=== PATIENT | female | born 1980 | race Caucasian/White ===

== ENCOUNTER 2022-06-28 09:20 | Oncology outpatient (recurring) (ONCR) | payer BC, SELFPAY ==
[2022-06-28 11:18] LABS: Basophils # 0.1 10^3/uL (0.0-0.1); Basophils % 0.9 %; Eosinophils # 0.3 10^3/uL (0.0-0.8); Hematocrit 46.6 % (37.0-47.0); Hemoglobin 15.1 g/dL (11.5-15.3); Lymphocytes # 2.8 10^3/uL (0.8-4.8); Lymphocytes % 26.6 %; Mean Corpuscular HGB Conc 32.4 g/dL (30.0-36.0); Mean Corpuscular Hemoglobin 29.6 pg (28.0-34.0); Mean Corpuscular Volume 91.4 fl (81-99); Mean Platelet Volume 11.2 fL (7.4-10.4); Monocytes # 0.7 10^3/uL (0.2-0.9); Monocytes % 6.7 %; Neutrophils # 6.58 10^3/uL (1.8-7.7); Neutrophils % 62.4 %; Nucleated Red Blood Cells % 0 %; Platelet Count 209 10^3/cmm (130-400); White Blood Count 10.6 10^3/uL (4.0-10.0)
[2022-06-28 11:29] LABS: Erythrocyte Sedimentation Rate 7 mm/hr (0-15)
[2022-06-28 12:00] LABS: Alanine Aminotransferase 17 U/L (0-33); Albumin Level 3.7 g/dL (3.5-5.2); Alkaline Phosphatase 109 U/L (35-105); Anion Gap 13.8 (5-19); Aspartate Amino Transferase 13 U/L (0-32); Blood Urea Nitrogen 10 mg/dL (6-20); C Reactive Protein 9.4 mg/L (0.0-4.9); Calcium 8.8 mg/dL (8.5-10.5); Carbon Dioxide 25 mmol/L (22-29); Chloride 104 mmol/L (98-107); Globulin 2.4 g/dL (1.3-4.6); Glomerular Filtration Rate 91.8 mL/min (90-130); Glucose 217 mg/dL (65-115); Iron 54 ug/dL (37-145); Lactate Dehydrogenase 298 U/L (135-214); Osmolality Calculated 294 mOsm/kg (285-295); Percent Saturation 23.5 % (20-50); Potassium 3.8 mmol/L (3.5-5.1); Sodium 139 mmol/L (136-145); Total Bilirubin 0.3 mg/dL (0.15-1.2); Total Iron Binding Capacity 229 mcg/dl; Total Protein 6.1 g/dL (6.6-8.7); Unsaturated Iron Binding 175 ug/dL (112-347); Vitamin B12 479 pg/mL (232-1245)
[2022-06-28 12:14] LABS: LAB Peripheral Smear Sent for Review
== END 2022-06-29 23:59 | disposition home or self-care (01) ==
LOC: ONCMED 09:21
PROVIDERS: PCP Family Medicine; Visit Provider Internal Medicine Medical Oncology
DX: D72.829 Elevated white blood cell count, unspecified (principal); R53.83 Other fatigue
CPT/HCPCS: 36415; 80053; 82607; 83540; 83550; 83615; 84443; 85025; 85651; 86140

== ENCOUNTER 2022-10-25 09:28 | Oncology outpatient (recurring) (ONCR) | payer BC, MEDICAID, SELFPAY ==
[2022-10-25 09:56] VITALS: BP 122/83; PULSE 76; RESP 18; TEMP 36.9; O2SAT 96
[2022-10-25 10:06] LABS: Basophils # 0.1 10^3/uL (0.0-0.1); Basophils % 1.2 %; Eosinophils # 0.3 10^3/uL (0.0-0.8); Eosinophils % 3.7 %; Hematocrit 44.7 % (37.0-47.0); Hemoglobin 14.9 g/dL (11.5-15.3); Lymphocytes # 2.3 10^3/uL (0.8-4.8); Lymphocytes % 27.4 %; Mean Corpuscular HGB Conc 33.3 g/dL (30.0-36.0); Mean Corpuscular Hemoglobin 30.2 pg (28.0-34.0); Mean Corpuscular Volume 90.7 fl (81-99); Mean Platelet Volume 10.3 fL (7.4-10.4); Monocytes # 0.5 10^3/uL (0.2-0.9); Monocytes % 6.1 %; Neutrophils % 61.2 %; Nucleated Red Blood Cells % 0 %; Platelet Count 152 10^3/cmm (130-400); Red Blood Count 4.93 10^6/uL (4.1-5.3); Red Cell Distribution Width 12.8 % (12.1-15.1); White Blood Count 8.3 10^3/uL (4.0-10.0)
[2022-10-25 10:34] LABS: Alanine Aminotransferase 13 U/L (0-33); Albumin Level 3.8 g/dL (3.5-5.2); Alkaline Phosphatase 82 U/L (35-105); Anion Gap 14.2 (5-19); Aspartate Amino Transferase 16 U/L (0-32); Blood Urea Nitrogen 9 mg/dL (6-20); C Reactive Protein 13.6 mg/L (0.0-4.9); Calcium 8.5 mg/dL (8.5-10.5); Carbon Dioxide 23 mmol/L (22-29); Chloride 107 mmol/L (98-107); Globulin 2.5 g/dL (1.3-4.6); Glomerular Filtration Rate 135.3 mL/min (90-130); Glucose 109 mg/dL (65-115); Osmolality Calculated 289 mOsm/kg (285-295); Potassium 4.2 mmol/L (3.5-5.1); Sodium 140 mmol/L (136-145); Total Bilirubin 0.3 mg/dL (0.15-1.2); Total Protein 6.3 g/dL (6.6-8.7)
[2022-10-25 10:54] LABS: Erythrocyte Sedimentation Rate 8 mm/hr (0-15)
== END 2022-10-29 23:59 | disposition home or self-care (01) ==
PROVIDERS: PCP Family Medicine; Visit Provider Internal Medicine Medical Oncology
DX: D72.829 Elevated white blood cell count, unspecified (principal)
CPT/HCPCS: 36415; 80053; 85025; 85651; 86140

== ENCOUNTER 2025-01-29 08:41 | Emergency (ER) | payer BC, MEDICAID, SELFPAY ==
--- NOTE | 2025-01-29 08:55 | XR_ITS ---
WS: [id number] XR hand RT min 3V* [id number] REASON FOR EXAM: pain FINDINGS: No fracture or focal bone lesion. No periosteal reaction or bone erosion. Minimal narrowing of the joint space with minimal subchondral sclerosis and osteophytosis in the DIP joints of this second through the fifth fingers and the thumb. Mild arthropathy in the base of the thumb characterized by mild carpometacarpal joint space narrowing with mild subchondral sclerosis and osteophytosis. XR/XR hand RT min 3V* [id number] IMPRESSION: Mild osteoarthritis as above.
[2025-01-29 08:56] VITALS: BP 141/88; PULSE 98; RESP 18; TEMP 36.7; O2SAT 98; BMI 36.2
--- OUTSIDE RECORDS SUMMARY | 2025-01-29 09:01 | XMS_ITS | Encounter Summary ---
Author Organization [facility] Address [address] [place] [address] Care Team Providers Care Trade Mark Examiner Name Role Phone SOMMER Fuentes Sr., Michael Dave Primary Care Pro vider Encounter Details Date Type Department Care Team (Latest Contact Info) Description 12/21/2004 Outpatient Historical [address] [place] [address] John Jaime Jr., MD NO ADDRESS ON FILE SUPERVIS OTHER NORMAL PREG (Primary Dx) Social History Tobacco Use Types Packs/Day Years Used Date Smoking Tobacco: Never Assessed Comments Unknown Sex and Gender Information Value Date Recorded Sex Assigned at Not on file Legal Sex Female 4:48 AM 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
--- OUTSIDE RECORDS SUMMARY | 2025-01-29 09:01 | XMS_ITS | Encounter Summary ---
Author Organization [facility] Address [address] [place] [address] Care Team Providers Care Route Sales Person Name Role Phone SOMMER Fuentes Sr., Michael Dave Primary Care Pro vider Encounter Details Date Type Department Care Team (Latest Contact Info) Description 11/16/[address] [facility] [address] [place] [address] Gail Pastrana FNP [address] [place] [phone] ABN BLOOD CHEMISTRY NEC (Primary Dx) Social History Tobacco Use Types Packs/Day Years Used Date Smoking Tobacco: Never Assessed Comments Unknown Sex and Gender Information Value Date Recorded Sex Assigned at Not on file Legal Sex Female 4:48 AM COFFEE SHOP AIDE Gender Identity Not on file Sexual Orientation Not on file documented as of this encounter Plan of Treatment Not on file documented as of this encounter Visit Diagnoses Diagnosis Other abnormal blood chemistry- Primary documented in this encounter Care Teams Route Sales Person Relationship Specialty Start Date End Date Vijay Fuentes Sr., FNP [address] [place] [address] PCP - General NURSE PRACTITIONER 04/24/18 documented as of this encounter
--- OUTSIDE RECORDS SUMMARY | 2025-01-29 09:01 | XMS_ITS | Encounter Summary ---
Author Organization [facility] Address [address] [place] [address] Care Team Providers Care Invoice Clerk Name Role Phone SOMMER Fuentes Sr., Vijay Fregoso Primary Care Pro vider Encounter Details Date Type Department Care Team (Latest Contact Info) Description 05/27/[address] [facility] [address] [place] [address] Gail Pastrana FNP [address] [place] [phone] CARPAL TUNNEL SYNDROME (Primary Dx) Social History Tobacco Use Types Packs/Day Years Used Date Smoking Tobacco: Never Assessed Comments Unknown Sex and Gender Information Value Date Recorded Sex Assigned at Not on file Legal Sex Female 4:48 AM COMMUNICATIONS AGENT Gender Identity Not on file Sexual Orientation Not on file documented as of this encounter Plan of Treatment Not on file documented as of this encounter Visit Diagnoses Diagnosis Carpal tunnel syndrome- Primary documented in this encounter Care Teams Invoice Clerk Relationship Specialty Start Date End Date Vijay Fuentes Sr., FNP [address] [place] [address] PCP - General NURSE PRACTITIONER 04/24/18 documented as of this encounter
--- OUTSIDE RECORDS SUMMARY | 2025-01-29 09:01 | XMS_ITS | Encounter Summary ---
Author Organization [facility] Address [address] [place] [address] Care Team Providers Care Cobol Application Developer Name Role Phone SOMMER Fuentes Sr., Michael Dave Primary Care Pro vider Encounter Details Date Type Department Care Team (Latest Contact Info) Description 04/03/2003 Outpatient Historical [address] [place] [address] John Jaime Jr., MD NO ADDRESS ON FILE SUPERVIS NORMAL 1ST PREG (Primary Dx) Social History Tobacco Use Types Packs/Day Years Used Date Smoking Tobacco: Never Assessed Comments Unknown Sex and Gender Information Value Date Recorded Sex Assigned at Not on file Legal Sex Female 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
--- OUTSIDE RECORDS SUMMARY | 2025-01-29 09:01 | XMS_ITS | Encounter Summary ---
Author Organization [facility] Address [address] [place] [address] Care Team Providers Care Insurance Sales Representative Name Role Phone Alfredo Galvan, SOMMER, Vijay Fregoso Primary Care Pro vider Encounter Details Date Type Department Care Team (Latest Contact Info) Description 02/17/2005 Outpatient Historical [facility] Addison Hassan, John Alonso MD NO ADDRESS ON FILE CERV INCOMPET-ANTEPARTUM (Primary Dx) Social History Tobacco Use Types Packs/Day Years Used Date Smoking Tobacco: Never Assessed Comments Unknown Sex and Gender Information Value Date Recorded Sex Assigned at Not on file 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 Gender Identity Not on file Sexual Orientation Not on file documented as of this encounter Plan of Treatment Not on file documented as of this encounter Procedures Procedure Name Priority Date/Time Associated Diagnosis Comments CBC WITHOUT DIFFERENTIAL Routine 02/17/2005 6:48 AM CDT documented in this encounter Results * (ABNORMAL) CBC WITHOUT DIFFERENTIAL (02/17/2005 6:48 AM CDT) WBC 12.2(H) 4.5 - 11.0 K/ul INTERFACE SYSTEM RBC 4.66 4.20 - 5.40 Mil/ul INTERFACE SYSTEM HEMOGLOBIN 14.4 12.0 - 16.0 g/dL INTERFACE SYSTEM HEMATOCRIT 42.1 36.0 - 46.0 % INTERFACE SYSTEM MCV 90.3 84.0 - 103.0 Fl INTERFACE SYSTEM MCH 30.9 27.0 - 34.0 pg INTERFACE SYSTEM MCHC 34.2 30.0 - 35.0 g/dL INTERFACE SYSTEM RDW 12.3 11.0 - 14.5 % INTERFACE SYSTEM PLATELETS 216 140 - 440 K/ul INTERFACE SYSTEM MPV 10.6 8.9 - 12.8 Fl INTERFACE SYSTEM NEUTROPHILS 67.3 42.2 - 75.2 % INTERFACE SYSTEM LYMPHOCYTES 24.0 24.0 - 44.0 % INTERFACE SYSTEM MONOCYTES 6.0 2.0 - 10.0 % INTERFACE SYSTEM EOSINOPHILS 2.5 0.0 - 7.0 % INTERFACE SYSTEM BASOPHILS 0.2 0.0 - 1.0 % INTERFACE SYSTEM NEUTROPHIL ABSOLUTE 8.2(H) 2.0 - 8.0 K/uL INTERFACE SYSTEM LYMPHOCYTE ABSOLUTE 2.9 1.2 - 4.0 K/ul INTERFACE SYSTEM MONOCYTE ABSOLUTE 0.7(H) 0.1 - 0.6 K/ul INTERFACE SYSTEM EOSINOPHIL ABSOLUTE 0.3 0.0 - 0.7 K/ul INTERFACE SYSTEM BASOPHILS ABSOLUTE 0.0 0.0 - 0.2 K/ul INTERFACE SYSTEM 02/17/2005 6:48 AM CDT us John Jaime Jr., MD HEMATOLOGY ORDERABLES Fi nal Result INTERFACE SYSTEM Refer to clinic/hospital department documented in this encounter Visit Diagnoses Diagnosis Cervical incompetence, antepartum condition or complication- Primary documented in this encounter Care Teams Insurance Sales Representative Relationship Specialty Start Date End Date Alfredo Galvan, SOMMER [address] [place] [address] PCP - General NURSE PRACTITIONER 04/24/18 documented as of this encounter
--- OUTSIDE RECORDS SUMMARY | 2025-01-29 09:01 | XMS_ITS | Encounter Summary ---
Author Organization [facility] Address [address] [place] [address] Care Team Providers Care Audit Associate Name Role Phone SOMMER Fuentes Sr., Michael Dave Primary Care Pro vider Encounter Details Date Type Department Care Team (Latest Contact Info) Description 02/02/2005 Outpatient Historical [address] [place] [address] John Jaime Jr., MD NO ADDRESS ON FILE SUPERVIS OTHER NORMAL PREG (Primary Dx) Social History Tobacco Use Types Packs/Day Years Used Date Smoking Tobacco: Never Assessed Comments Unknown Sex and Gender Information Value Date Recorded Sex Assigned at Not on file Legal Sex Female 4:48 AM CHAPERON Gender Identity Not on file Sexual Orientation Not on file documented as of this encounter Plan of Treatment Not on file documented as of this encounter Visit Diagnoses Diagnosis Supervision of other normal - Primary documented in this encounter Care Teams Audit Associate Relationship Specialty Start Date End Date Vijay Fuentes Sr., FNP [address] [place] [address] PCP - General NURSE PRACTITIONER 04/24/18 documented as of this encounter
--- OUTSIDE RECORDS SUMMARY | 2025-01-29 09:01 | XMS_ITS | Encounter Summary ---
Author Organization [facility] Address [address] [place] [address] Care Team Providers Care General Counsel Name Role Phone SOMMER Fuentes Sr., Vijay Fregoso Primary Care Pro vider Encounter Details Date Type Department Care Team (Late st Contact Info) Description 12/21/2004 Outpatient Historical [facility] Addison Hassan, John Alonso MD NO ADDRESS ON FILE Social History Tobacco Use Types Packs/Day Years Used Date Smoking Tobacco: Never Assessed Comments Unknown Sex and Gender Information Value Date Recorded Sex Assigned at Not on file Legal Sex Female 4:48 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
--- OUTSIDE RECORDS SUMMARY | 2025-01-29 09:01 | XMS_ITS | Encounter Summary ---
Author Organization [facility] Address [address] [place] [address] Care Team Providers Care Consumer Loan Underwriter Name Role Phone SOMMER Fuentes Sr., Vijay Fregoso Primary Care Pro vider Encounter Details Date Type Department Care Team (Latest Contact Info) Description 10/12/2004 Outpatient Historical [facility] [address] [place] [phone] Gail Pastrana FNP [address] [place] [address] OTHER MALAISE AND FATIGUE (Primary Dx); DIZZINESS AND GIDDINESS Social History Tobacco Use Types Packs/Day Years Used Date Smoking Tobacco: Never Assessed Comments Unknown Sex and Gender Information Value Date Recorded Sex Assigned at Not on file 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
--- OUTSIDE RECORDS SUMMARY | 2025-01-29 09:01 | XMS_ITS | Encounter Summary ---
Author Organization [facility] Address [address] [place] [address] Care Team Providers Care Diamond Mounter Name Role Phone SOMMER Fuentes Sr., Michael Dave Primary Care Pro vider Encounter Details Date Type Department Care Team (Latest Contact Info) Description 12/21/2004 Outpatient Historical [address] [place] [address] John Jaime Jr., MD NO ADDRESS ON FILE SUPERVIS OTHER NORMAL PREG (Primary Dx) Social History Tobacco Use Types Packs/Day Years Used Date Smoking Tobacco: Never Assessed Comments Unknown Sex and Gender Information Value Date Recorded Sex Assigned at Not on file Legal Sex Female 4:48 AM API PRODUCT MANAGER Gender Identity Not on file Sexual Orientation Not on file documented as of this encounter Plan of Treatment Not on file documented as of this encounter Visit Diagnoses Diagnosis Supervision of other normal - Primary documented in this encounter Care Teams Diamond Mounter Relationship Specialty Start Date End Date Vijay Fuentes Sr., FNP [address] [place] [address] PCP - General NURSE PRACTITIONER 04/24/18 documented as of this encounter
--- OUTSIDE RECORDS SUMMARY | 2025-01-29 09:01 | XMS_ITS | Encounter Summary ---
Author Organization [facility] Address [address] [place] [address] Care Team Providers Care Etcher Photoengraving Name Role Phone SOMMER Fuentes Sr., Vijay Fregoso Primary Care Pro vider Encounter Details Date Type Department Care Team (Latest Contact Info) Description 02/04/2005 Outpatient Historical [facility] M[facility] and [facility] d [address] [place] [address] Alec Blum MD NO ADDRESS ON FILE PREG COMPL NEC-ANTEPART (Primary Dx); SCREENING NEC Social History Tobacco Use Types Packs/Day Years Used Date Smoking Tobacco: Never Assessed Comments Unknown Sex and Gender Information Value Date Recorded Sex Assigned at Not on file Legal Sex Female 4:48 AM TALENT SOLUTIONS MANAGER Gender Identity Not on file Sexual Orientation Not on file documented as of this encounter Plan of Treatment Not on file documented as of this encounter Visit Diagnoses Diagnosis Other specified complication, antepartum(646.83)- Primary Other specified complication, antepartum Other screening Other specified screening documented in this encounter Care Teams Etcher Photoengraving Relationship Specialty Start Date End Date Vijay Fuentes Sr., FNP [address] [place] [address] PCP - General NURSE PRACTITIONER 04/24/18 documented as of this encounter
--- OUTSIDE RECORDS SUMMARY | 2025-01-29 09:01 | XMS_ITS | Encounter Summary ---
Author Organization [facility] Address [address] [place] [address] Care Team Providers Care Button Reclaimer Name Role Phone SOMMER Fuentes Sr., Michael Dave Primary Care Pro vider Encounter Details Date Type Department Care Team (Latest Contact Info) Description 03/02/2005 Outpatient Historical [address] [place] [address] John Jaime Jr., MD NO ADDRESS ON FILE SUPERVIS OTHER NORMAL PREG (Primary Dx) Social History Tobacco Use Types Packs/Day Years Used Date Smoking Tobacco: Never Assessed Comments Unknown Sex and Gender Information Value Date Recorded Sex Assigned at Not on file Legal Sex Female 4:48 AM TOOL AND 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
--- OUTSIDE RECORDS SUMMARY | 2025-01-29 09:01 | XMS_ITS | Encounter Summary ---
Author Organization [facility] Address [address] [place] [address] Care Team Providers Care Manager Internal Name Role Phone SOMMER Fuentes Sr., Michael Dave Primary Care Pro vider Encounter Details Date Type Department Care Team (Latest Contact Info) Description 03/20/2003 Outpatient Historical [address] [place] [address] John Jaime Jr., MD NO ADDRESS ON FILE SUPERVIS NORMAL 1ST PREG (Primary Dx) Social History Tobacco Use Types Packs/Day Years Used Date Smoking Tobacco: Never Assessed Comments Unknown Sex and Gender Information Value Date Recorded Sex Assigned at Not on file Legal Sex Female 4:48 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
--- OUTSIDE RECORDS SUMMARY | 2025-01-29 09:01 | XMS_ITS | Encounter Summary ---
Author Organization [facility] Address [address] [place]: [place] [address] Care Team Providers Care Grain Oilseed Or Pasture Farm Worker Name Role Phone SOMMER Fuentes Sr., Vijay Fregoso Primary Care Pro vider Encounter Details Date Type Department Care Team (Late st Contact Info) Description 04/07/2003 Inpatient Historical Addison Hassan, John Alonso MD NO ADDRESS ON FILE DEL W 1 DEG LACERAT-DEL (Primary Dx) Social History Tobacco Use Types Packs/Day Years Used Date Smoking Tobacco: Never Assessed Comments Unknown Sex and Gender Information Value Date Recorded Sex Assigned at Not on file Legal Sex Female 4:48 AM PLASTIC MAKER Gender Identity Not on file Sexual Orientation Not on file documented as of this encounter Plan of Treatment Not on file documented as of this encounter Visit Diagnoses Diagnosis First-degree perineal laceration, with delivery- Primary documented in this encounter Care Teams Grain Oilseed Or Pasture Farm Worker Relationship Specialty Start Date End Date Vijay Fuentes Sr., FNP [address] [place] [address] PCP - General NURSE PRACTITIONER 04/24/18 documented as of this encounter
--- OUTSIDE RECORDS SUMMARY | 2025-01-29 09:01 | XMS_ITS | Encounter Summary ---
Author Organization [facility] Address [address] [place] [address] Care Team Providers Care Medical Management Trainer Name Role Phone SOMMER Fuentes Sr., Michael Dave Primary Care Pro vider Encounter Details Date Type Department Care Team (Latest Contact Info) Description 02/17/2005 Outpatient Historical [facility] [address] [place] [address] John Jaime Jr., MD NO ADDRESS ON FILE CERV INCOMPET-ANTEPARTUM (Primary Dx); PREG W POOR OBSTETRIC HX NEC Social History Tobacco Use Types Packs/Day Years Used Date Smoking Tobacco: Never Assessed Comments Unknown Sex and Gender Information Value Date Recorded Sex Assigned at Not on file Legal Sex Female 4:48 AM INSIDE SALES ASSOCIATE Gender Identity Not on file Sexual Orientation Not on file documented as of this encounter Plan of Treatment Not on file documented as of this encounter Visit Diagnoses Diagnosis Cervical incompetence, antepartum condition or complication- Primary with other poor obstetric history(V23.49) with other poor obstetric history documented in this encounter Care Teams Medical Management Trainer Relationship Specialty Start Date End Date Vijay Fuentes Sr., FNP [address] [place] [address] PCP - General NURSE PRACTITIONER 04/24/18 documented as of this encounter
--- OUTSIDE RECORDS SUMMARY | 2025-01-29 09:01 | XMS_ITS | Encounter Summary ---
Author Organization [facility] Address [address] [place] [address] Care Team Providers Care Tooth Inspector Name Role Phone SOMMER Fuentes Sr., Michael Dave Primary Care Pro vider Encounter Details Date Type Department Care Team (Latest Contact Info) Description 03/30/2005 Outpatient Historical [address] [place] [address] John Jaime Jr., MD NO ADDRESS ON FILE Vaccine for influenza (Primary Dx); SUPERVIS OTHER NORMAL PREG Social History Tobacco Use Types Packs/Day Years Used Date Smoking Tobacco: Never Assessed Comments Unknown Sex and Gender Information Value Date Recorded Sex Assigned at Not on file Legal Sex Female 4:48 AM PLANT CUSTODIAN Gender Identity Not on file Sexual Orientation Not on file documented as of this encounter Plan of Treatment Not on file documented as of this encounter Visit Diagnoses Diagnosis Vaccine for influenza- Primary Need for prophylactic vaccination and inoculation against influenza Supervision of other normal documented in this encounter Care Teams Tooth Inspector Relationship Specialty Start Date End Date Vijay Fuentes Sr., FNP [address] [place] [address] PCP - General NURSE PRACTITIONER 04/24/18 documented as of this encounter
--- OUTSIDE RECORDS SUMMARY | 2025-01-29 09:01 | XMS_ITS | Encounter Summary ---
Author Organization [facility] Address [address] [place] [address] Care Team Providers Care Ell Teacher Name Role Phone SOMMER Fuentes Sr., Michael Dave Primary Care Pro vider Encounter Details Date Type Department Care Team (Latest Contact Info) Description 01/05/2005 Outpatient Historical [address] [place] [address] John Jaime Jr., MD NO ADDRESS ON FILE SUPERVIS OTHER NORMAL PREG (Primary Dx) Social History Tobacco Use Types Packs/Day Years Used Date Smoking Tobacco: Never Assessed Comments Unknown Sex and Gender Information Value Date Recorded Sex Assigned at Not on file Legal Sex Female 4:48 AM 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
--- OUTSIDE RECORDS SUMMARY | 2025-01-29 09:02 | XMS_ITS | Encounter Summary ---
Author Organization [facility] Address [address] [place] [address] Care Team Providers Care Manager System Name Role Phone SOMMER Fuentes Sr., Michael Dave Primary Care Pro vider Encounter Details Date Type Department Care Team (Latest Contact Info) Description 12/05/2002 Outpatient Historical [facility] M[facility] and Medicine[facility] d [address] [place] [address] Alec Blum MD NO ADDRESS ON FILE SCREEN- MALFORM (Primary Dx) Social History Tobacco Use Types Packs/Day Years Used Date Smoking Tobacco: Never Assessed Comments Unknown Sex and Gender Information Value Date Recorded Sex Assigned at Not on file Legal Sex Female 4:48 AM DRUM TENDER Gender Identity Not on file Sexual Orientation Not on file documented as of this encounter Plan of Treatment Not on file documented as of this encounter Visit Diagnoses Diagnosis Encounter for routine screening for malformation using ultrasonics- Primary documented in this encounter Care Teams Manager System Relationship Specialty Start Date End Date Vijay Fuentes Sr., FNP [address] [place] [address] PCP - General NURSE PRACTITIONER 04/24/18 documented as of this encounter
--- OUTSIDE RECORDS SUMMARY | 2025-01-29 09:02 | XMS_ITS | Encounter Summary ---
Author Organization [facility] Address [address] [place] [address] Care Team Providers Care Field Tax Auditor Name Role Phone SOMMER Fuentes Sr., Michael Dave Primary Care Pro vider Encounter Details Date Type Department Care Team (Latest Contact Info) Description 07/10/2005 Outpatient Historical [facility] Addison Hassan, John Alonso MD NO ADDRESS ON FILE Threatened Premature Labor, Antepartum (Primary Dx) Social History Tobacco Use Types Packs/Day Years Used Date Smoking Tobacco: Never Assessed Comments Unknown Sex and Gender Information Value Date Recorded Sex Assigned at Not on file Legal Sex Female 4:48 AM PROPERTY MANAGEMENT ACCOUNTANT Gender Identity Not on file Sexual Orientation Not on file documented as of this encounter Plan of Treatment Not on file documented as of this encounter Visit Diagnoses Diagnosis Threatened premature labor, antepartum(644.03)- Primary Threatened premature labor, antepartum documented in this encounter Care Teams Field Tax Auditor Relationship Specialty Start Date End Date Vijay Fuentes Sr., FNP [address] [place] [address] PCP - General NURSE PRACTITIONER 04/24/18 documented as of this encounter
--- OUTSIDE RECORDS SUMMARY | 2025-01-29 09:02 | XMS_ITS | Encounter Summary ---
Author Organization [facility] Address [address] [place] [address] Care Team Providers Care Med Surg Rn Name Role Phone SOMMER Fuentes Sr., Michael Dave Primary Care Pro vider Encounter Details Date Type Department Care Team (Latest Contact Info) Description 03/01/2002 Outpatient Historical [facility] Medicine[address] [phone] Andi Sandoval MD [address] [address] SUPERVIS OTHER NORMAL PREG (Primary Dx) Social History Tobacco Use Types Packs/Day Years Used Date Smoking Tobacco: Never Assessed Comments Unknown Sex and Gender Information Value Date Recorded Sex Assigned at Not on file 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
--- OUTSIDE RECORDS SUMMARY | 2025-01-29 09:02 | XMS_ITS | Encounter Summary ---
Author Organization [facility] Address [address] [place] [address] Care Team Providers Care Sheet Layer Name Role Phone SOMMER Fuentes Sr., Michael Dave Primary Care Pro vider Encounter Details Date Type Department Care Team (Latest Contact Info) Description 05/27/2003 Outpatient Historical [facility] Addison Hassan, John Alonso MD NO ADDRESS ON FILE SCREENING MAL NEOP-CERVIX (Primary Dx) Social History Tobacco Use Types Packs/Day Years Used Date Smoking Tobacco: Never Assessed Comments Unknown Sex and Gender Information Value Date Recorded Sex Assigned at Not on file 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
--- OUTSIDE RECORDS SUMMARY | 2025-01-29 09:02 | XMS_ITS | Encounter Summary ---
Author Organization [facility] Address [address] [place] [address] Care Team Providers Care Milking System Installer Name Role Phone SOMMER Fuentes Sr., Michael Dave Primary Care Pro vider Encounter Details Date Type Department Care Team (Latest Contact Info) Description 05/31/2002 Outpatient Historical HIS [facility] Addison Hassan, John Alonso MD NO ADDRESS ON FILE SCREENING MAL NEOP-CERVIX (Primary Dx) Social History Tobacco Use Types Packs/Day Years Used Date Smoking Tobacco: Never Assessed Comments Unknown Sex and Gender Information Value Date Recorded Sex Assigned at Not on file 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
--- OUTSIDE RECORDS SUMMARY | 2025-01-29 09:02 | XMS_ITS | Encounter Summary ---
[facility] Organization [facility] Address [address] [place] [address] Care Team Providers Care Molding Utility Worker Name Role Phone Gifty Coleman MD Primary Care Provider [phone] Encounter Details Date Type Department Care Team (Late st Contact Info) Description 11/12/2021 Digital Self COVID-1 9 Monitoring [facility] ABSTRACTION Provider, Abstract NO ADDRESS ON FILE Social History Tobacco Use Types Packs/Day Years Used Date Smoking Tobacco: Former Cigarettes Smokeless Tobacco: Former Quit: 09/30/2020 Comments:Quit smokin cig arettes daily x 2 weeks trying to quit Alcohol Use Standard Drinks/Week Comments No 0 (1 standard drink = 0.6 oz pur e alcohol) Comments No Sex and Gender Information Value Date Recorded Sex Assigned at Not on file Legal Sex Female 10:03 AM CDT Gender Identity Not on file Sexual Orientation Not on file COVID-19 Exposure Response Date Recorded In the last 10 days, have yo u been in contact with someone who was confirmed or suspected to have Coronavirus/COVID-19? No / Unsure 10/30/2021 9:42 AM CDT documented as of this encounter Plan of Treatment Not on file documented as of this encounter Visit Diagnoses Not on filedocumented in this encounter Additional Health Concerns Infection Onset Date Last Indicated Resolved Time COVID-19 Comment:10/29/21 Reports not feeling well per Dr. Elliott note. 10/29/2021 10/30/2021 11/18/2021 1:17 AM CDT documented as of this encounter Care Teams Molding Utility Worker Relationship Specialty Start Date End Date Gifty Coleman MD [address] [id number] PCP - General Family Practice 05/24/22 documented as of this encounter
--- OUTSIDE RECORDS SUMMARY | 2025-01-29 09:02 | XMS_ITS | Encounter Summary ---
Author Organization [facility] Address [address] [place] [address] Care Team Providers Care Coating Mixer Tender Name Role Phone SOMMER Fuentes Sr., Michael Dave Primary Care Pro vider Encounter Details Date Type Department Care Team (Latest Contact Info) Description 11/01/2002 Outpatient Historical [address] [place] [address] John Jaime Jr., MD NO ADDRESS ON FILE SUPERVIS OTHER NORMAL PREG (Primary Dx); PREG W OTHER POOR OBSTETRIC HISTORY Social History Tobacco Use Types Packs/Day Years Used Date Smoking Tobacco: Never Assessed Comments Unknown Sex and Gender Information Value Date Recorded Sex Assigned at Not on file 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
--- OUTSIDE RECORDS SUMMARY | 2025-01-29 09:02 | XMS_ITS | Encounter Summary ---
Author Organization [facility] Address [address] [place] [address] Care Team Providers Care Life Skills Coach Name Role Phone SOMMER Fuentes Sr., Michael Dave Primary Care Pro vider Encounter Details Date Type Department Care Team (Latest Contact Info) Description 07/18/2005 Outpatient Historical [address] [place] [address] John Jaime Jr., MD NO ADDRESS ON FILE Normal Delivery (Primary Dx); Outcome of Delivery, Single Liveborn Social History Tobacco Use Types Packs/Day Years Used Date Smoking Tobacco: Never Assessed Comments Unknown Sex and Gender Information Value Date Recorded Sex Assigned at Not on file 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
--- OUTSIDE RECORDS SUMMARY | 2025-01-29 09:02 | XMS_ITS | Clinical Summary ---
Author Organization [facility] Address [address] [place] [address] Care Team Providers Care Buckle Coverer Name Role Phone Alfredo Galvan, SOMMER, Vijay Fregoso Primary Care Pro vider Allergies Active Allergy Reactions Criticality Noted Date Comments Cephalexin Hives High 03/23/2016 Penicillins Rash Low 08/06/2010 Medications diphenhydrAMINE (BENADRYL) 25 mg tablet Take 50 mg by mouth every 6 hours as needed for Allergies. Active predniSONE (DELTASONE) 20 mg tablet Take 2 Tablets (40 mg) by mouth 2 times daily. 16 Tablet 04/24/2018 Active Active Problems Problem Noted Date Diagnosed Date Cigarette dependence 03/24/2015 Toothache 08/06/2010 Immunizations Immunization Administration Dates Next Due Influenza Seasonal Unspecified Formulation IM Family History Medical History Relation Name Comments Healthy Brother Healthy Father Healthy Mother Healthy Sister Relation Name Status Comments Brother Alive Father Alive Mother Alive Sister Alive Social History Tobacco Use Types Packs/Day Years Used Date Smoking Tobacco: Every Day Cigarettes Smokeless Tobacco: Never Comments:6 cigarettes daily x 2 weeks trying to quit Alcohol Use Standard Drinks/Week Comments No 0 (1 standard drink = 0.6 oz pur e alcohol) Comments No Sex and Gender Information Value Date Recorded Sex Assigned at Not on file 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 Sex Female 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 Gender Identity Not on file Sexual Orientation Not on file Last Filed Vital Signs Vital Sign Reading Time Taken Comments Blood Pressure 107/70 04/24/2018 10:53 AM 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 Pulse 93 04/24/2018 10:44 AM 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 Temperature 37.2 C (98.9 F) 04/24/2018 10:53 AM 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 Respiratory Rate 20 04/24/2018 10:53 AM 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 Oxygen Saturation 95% 04/24/2018 10:53 AM 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 Inhaled Oxygen Concentration - - Weight 101.2 kg (223 lb) 04/24/2018 10:12 AM 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 Height 160 cm (5' 3 ) 04/24/2018 10:12 AM 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 Body Mass Index 39.5 04/24/2018 10:12 AM 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 Plan of Treatment Health Maintenance Due Date Last Done Comments DTAP/TDAP/TD VACCINES (1 - Tdap) 1999 HEPATITIS B VACCINES (1 of 3 - 19+ 3-dose series) 07/1999 HPV/Cotest (21-29) 2001 HPV VACCINES (1 - 3-dose SCDM series) 2007 CERVICAL CANCER SCREENING 2010 HPV/Cotest (30-65) 2010 PAP SMEAR 2010 12/21/2004 BREAST CANCER SCREENING 2020 INFLUENZA VACCINE (#1) 2024 03/30/[address] [place] [address] Care Teams Buckle Coverer Relationship Specialty Start Date End Date Vijay Fuentes Sr., FNP [address] [place] [address] PCP - General NURSE PRACTITIONER 04/24/18
--- OUTSIDE RECORDS SUMMARY | 2025-01-29 09:02 | XMS_ITS | Encounter Summary ---
Author Organization [facility] Address [address] [place] [address] Care Team Providers Care Vp Hr Diversity Name Role Phone SOMMER Fuentes Sr., Michael Dave Primary Care Pro vider Encounter Details Date Type Department Care Team (Latest Contact Info) Description 01/11/2002 Outpatient Historical [facility] Medicine[address] [phone] Andi Sandoval MD [address] [address] SUPERVIS OTHER NORMAL PREG (Primary Dx) Social History Tobacco Use Types Packs/Day Years Used Date Smoking Tobacco: Never Assessed Comments Unknown Sex and Gender Information Value Date Recorded Sex Assigned at Not on file 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
--- OUTSIDE RECORDS SUMMARY | 2025-01-29 09:02 | XMS_ITS | Encounter Summary ---
Author Organization [facility] Address [address] [place] [address] Care Team Providers Care Operator Name Role Phone SOMMER Fuentes Sr., Vijay Fregoso Primary Care Pro vider Encounter Details Date Type Department Care Team (Latest Contact Info) Description 04/03/1999 Outpatient Historical [facility] [address] [place] [phone] Zenon Fall, DO [address] [place] [address] Unspecified disorder of urethra and urinary tract (Primary Dx); Herpes simplex without mention of complication Social History Tobacco Use Types Packs/Day Years Used Date Smoking Tobacco: Never Assessed Comments Unknown Sex and Gender Information Value Date Recorded Sex Assigned at Not on file 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
--- OUTSIDE RECORDS SUMMARY | 2025-01-29 09:02 | XMS_ITS | Encounter Summary ---
Author Organization [facility] Address [address] [place] [address] Care Team Providers Care Parking Meter Mechanic Name Role Phone SOMMER Fuentes Sr., Michael Dave Primary Care Pro vider Encounter Details Date Type Department Care Team (Latest Contact Info) Description 05/31/2002 Outpatient Historical [address] [place] [address] John Jaime Jr., MD NO ADDRESS ON FILE ROUT POSTPART FOLLOW-UP (Primary Dx) Social History Tobacco Use Types Packs/Day Years Used Date Smoking Tobacco: Never Assessed Comments Unknown Sex and Gender Information Value Date Recorded Sex Assigned at Not on file 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
--- OUTSIDE RECORDS SUMMARY | 2025-01-29 09:02 | XMS_ITS | Encounter Summary ---
Author Organization [facility] Address [address] [place] [address] Care Team Providers Care Sports Attorney Name Role Phone Gifty Coleman MD Primary Care Provider [phone] Encounter Details Date Type Department Care Team (Late st Contact Info) Description 11/13/2021 Digital Self COVID-1 9 Monitoring [facility] ABSTRACTION [...] documented as of this encounter Care Teams Sports Attorney Relationship Specialty Start Date End Date Gifty Coleman MD [address] [phone] PCP - General Family Practice 05/24/22 documented as of this encounter
--- OUTSIDE RECORDS SUMMARY | 2025-01-29 09:02 | XMS_ITS | Encounter Summary ---
Author Organization [facility] Address [address] [place] [address] Care Team Providers Care Unishear Operator Name Role Phone SOMMER Fuentes Sr., Vijay Fregoso Primary Care Pro vider Encounter Details Date Type Department Care Team (Latest Contact Info) Description 05/13/2004 Outpatient Historical [facility] [address] [place] [phone] Gail Pastrana FNP [address] [place] [address] Pain in limb (Primary Dx); MENSTRUAL DISORDER NOS Social History Tobacco Use Types Packs/Day Years Used Date Smoking Tobacco: Never Assessed Comments Unknown Sex and Gender Information Value Date Recorded Sex Assigned at Not on file 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
--- OUTSIDE RECORDS SUMMARY | 2025-01-29 09:02 | XMS_ITS | Encounter Summary ---
Author Organization [facility] Address [address] [place] [address] Care Team Providers Care China Painter Name Role Phone SOMMER Fuentes Sr., Vijay Fregoso Primary Care Pro vider Encounter Details Date Type Department Care Team (Latest Contact Info) Description 12/03/[address] 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
--- OUTSIDE RECORDS SUMMARY | 2025-01-29 09:02 | XMS_ITS | Encounter Summary ---
Author Organization [facility] Address [address] [place] [address] Care Team Providers Care Uat Tester Name Role Phone SOMMER Fuentes Sr., Michael Dave Primary Care Pro vider Encounter Details Date Type Department Care Team (Latest Contact Info) Description 04/22/2002 Outpatient Historical [facility] [address] [place] [address] Paulo Landon II, MD [address] [facility] [address] [place] [address] THRT MARY LABOR-ANTEPART (Primary Dx); ANTEPARTUM HEMORR NOS-ANTEPAR Social History Tobacco Use Types Packs/Day Years Used Date Smoking Tobacco: Never Assessed Comments Unknown Sex and Gender Information Value Date Recorded Sex Assigned at Not on file 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
--- OUTSIDE RECORDS SUMMARY | 2025-01-29 09:02 | XMS_ITS | Encounter Summary ---
Author Organization [facility] Address [address] [place] [address] Care Team Providers Care Franchise Sales Representative Name Role Phone SOMMER Fuentes Sr., Michael Dave Primary Care Pro vider Encounter Details Date Type Department Care Team (Latest Contact Info) Description 12/28/2001 Outpatient Historical [facility] Medicine[address] [phone] Andi Sandoval MD [address] [address] SUPERVIS OTHER NORMAL PREG (Primary Dx) Social History Tobacco Use Types Packs/Day Years Used Date Smoking Tobacco: Never Assessed Comments Unknown Sex and Gender Information Value Date Recorded Sex Assigned at Not on file 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
--- OUTSIDE RECORDS SUMMARY | 2025-01-29 09:02 | XMS_ITS | Encounter Summary ---
Author Organization [facility] Address [address] [place] [address] Care Team Providers Care Ball Mill Mixer Name Role Phone SOMMER Fuentes Sr., Vijay Fregoso Primary Care Pro vider Encounter Details Date Type Department Care Team (Latest Contact Info) Description 09/18/2002 Outpatient Historical [facility] Addison Hassan, John Alonso MD NO ADDRESS ON FILE SCREENING NEC (Primary Dx) Social History Tobacco Use Types Packs/Day Years Used Date Smoking Tobacco: Never Assessed Comments Unknown Sex and Gender Information Value Date Recorded Sex Assigned at Not on file Legal Sex Female 4:48 AM LAW RESEARCHER Gender Identity Not on file Sexual Orientation Not on file documented as of this encounter Plan of Treatment Not on file documented as of this encounter Visit Diagnoses Diagnosis Other screening- Primary Other specified screening documented in this encounter Care Teams Ball Mill Mixer Relationship Specialty Start Date End Date Vijay Fuentes Sr., FNP [address] [place] [address] PCP - General NURSE PRACTITIONER 04/24/18 documented as of this encounter
--- OUTSIDE RECORDS SUMMARY | 2025-01-29 09:02 | XMS_ITS | Encounter Summary ---
Author Organization [facility] Address [address] 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
--- OUTSIDE RECORDS SUMMARY | 2025-01-29 09:02 | XMS_ITS | Encounter Summary ---
Author Organization [facility] Address [address] [place] [address] Care Team Providers Care Product Accountant Name Role Phone SOMMER Fuentes Sr., Vijay Fregoso Primary Care Pro vider Encounter Details Date Type Department Care Team (Latest Contact Info) Description 01/21/2006 Outpatient Historical [facility] [address] [place] [address] Gail Pastrana FNP [address] [place] [address] Anxiety State, Unspecified (Primary Dx); Acute Upper Respiratory Infections of Unspecified Site Social History Tobacco Use Types Packs/Day Years Used Date Smoking Tobacco: Never Assessed Comments Unknown Sex and Gender Information Value Date Recorded Sex Assigned at Not on file 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
--- OUTSIDE RECORDS SUMMARY | 2025-01-29 09:02 | XMS_ITS | Encounter Summary ---
Author Organization [facility] Address [address] [place] [address] Care Team Providers Care Grill Attendant Name Role Phone SOMMER Fuentes Sr., Michael Dave Primary Care Pro vider Encounter Details Date Type Department Care Team (Latest Contact Info) Description 09/18/2002 Outpatient Historical [address] [place] [address] John Jaime Jr., MD NO ADDRESS ON FILE SCREEN- RETARDATION (Primary Dx); SUPERVIS OTHER NORMAL PREG Social History Tobacco Use Types Packs/Day Years Used Date Smoking Tobacco: Never Assessed Comments Unknown Sex and Gender Information Value Date Recorded Sex Assigned at Not on file 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
--- OUTSIDE RECORDS SUMMARY | 2025-01-29 09:02 | XMS_ITS | Encounter Summary ---
Author Organization [facility] Address [address] [place] [address] Care Team Providers Care Crab Butcher Name Role Phone SOMMER Fuentes Sr., Michael Dave Primary Care Pro vider Encounter Details Date Type Department Care Team (Latest Contact Info) Description 11/29/2002 Outpatient Historical [address] [place] [address] John Jaime Jr., MD NO ADDRESS ON FILE SUPERVIS OTHER NORMAL PREG (Primary Dx) Social History Tobacco Use Types Packs/Day Years Used Date Smoking Tobacco: Never Assessed Comments Unknown Sex and Gender Information Value Date Recorded Sex Assigned at Not on file 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
--- OUTSIDE RECORDS SUMMARY | 2025-01-29 09:02 | XMS_ITS | Encounter Summary ---
Author Organization [facility] Address [address] [place] [address] Care Team Providers Care Block Mechanic Name Role Phone Gifty Coleman MD Primary Care Provider +1- [phone] Encounter Details Date Type Department Care Team (Late st Contact Info) Description 11/08/2021 Digital Self COVID-1 9 Monitoring [facility] ABSTRACTION [...] documented as of this encounter Care Teams Block Mechanic Relationship Specialty Start Date End Date Gifty Coleman MD [address] [phone] PCP - General Family Practice 05/24/22 documented as of this encounter
--- OUTSIDE RECORDS SUMMARY | 2025-01-29 09:02 | XMS_ITS | Encounter Summary ---
Author Organization [facility] Address [address] [place] [address] Care Team Providers Care Media Production Operator Name Role Phone SOMMER Fuentes Sr., Michael Dave Primary Care Pro vider Encounter Details Date Type Department Care Team (Latest Contact Info) Description 12/15/1998 Outpatient Historical [facility] [address] [place] [address] Zenon Fall, DO [address] [place] [address] Acute bronchitis (Primary Dx); Acute sinusitis, unspecified Social History Tobacco Use Types Packs/Day Years Used Date Smoking Tobacco: Never Assessed Comments Unknown Sex and Gender Information Value Date Recorded Sex Assigned at Not on file Legal Sex Female 4:48 AM CONSULTING DATABASE 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
--- OUTSIDE RECORDS SUMMARY | 2025-01-29 09:02 | XMS_ITS | Encounter Summary ---
Author Organization [facility] Address [address] [place] [address] Care Team Providers Care Release Of Information Specialist Name Role Phone Gifty Coleman MD Primary Care Provider [phone]- [phone] Encounter Details Date Type Department Care Team (Late st Contact Info) Description 11/11/2021 Digital Self COVID-1 9 Monitoring [facility] ABSTRACTION [...] documented as of this encounter Care Teams Release Of Information Specialist Relationship Specialty Start Date End Date Gifty Coleman MD [address] [phone] PCP - General Family Practice 05/24/22 documented as of this encounter
--- OUTSIDE RECORDS SUMMARY | 2025-01-29 09:02 | XMS_ITS | Encounter Summary ---
Author Organization [facility] Address [address] [place] [address] Care Team Providers Care Drop Pit Worker Name Role Phone SOMMER Fuentes Sr., Michael Dave Primary Care Pro vider Encounter Details Date Type Department Care Team (Latest Contact Info) Description 10/17/1998 Outpatient Historical [facility] [address] [place] [address] Zenon Fall, DO [address] [place] [address] Gynecologic examination (Primary Dx) Social History Tobacco Use Types Packs/Day Years Used Date Smoking Tobacco: Never Assessed Comments Unknown Sex and Gender Information Value Date Recorded Sex Assigned at Not on file 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
--- OUTSIDE RECORDS SUMMARY | 2025-01-29 09:02 | XMS_ITS | Encounter Summary ---
Author Organization [facility] Address [address] [place] [address] Care Team Providers Care Beef Trimmer Name Role Phone SOMMER Fuentes Sr., Michael Dave Primary Care Pro vider Encounter Details Date Type Department Care Team (Latest Contact Info) Description 07/07/2005 Outpatient Historical [address] [place] [address] Addison Hassan, John Alonso MD NO ADDRESS ON FILE Supervision of Other Normal (Primary Dx) Social History Tobacco Use Types Packs/Day Years Used Date Smoking Tobacco: Never Assessed Comments Unknown Sex and Gender Information Value Date Recorded Sex Assigned at Not on file 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
--- OUTSIDE RECORDS SUMMARY | 2025-01-29 09:02 | XMS_ITS | Encounter Summary ---
Author Organization [facility] Address [address] [place] [address] Care Team Providers Care Information Resources Manager Name Role Phone Gifty Coleman MD Primary Care Provider +1- [phone] Encounter Details Date Type Department Care Team [...] documented as of this encounter Care Teams Information Resources Manager Relationship Specialty Start Date End Date Gifty Coleman MD [address] [phone] PCP - General Family Practice 05/24/22 documented as of this encounter
--- OUTSIDE RECORDS SUMMARY | 2025-01-29 09:02 | XMS_ITS | Encounter Summary ---
Author Organization [facility] Address [address] [place] [address] Care Team Providers Care Facility Manager Name Role Phone SOMMER Fuentes Sr., Michael Dave Primary Care Pro vider Encounter Details Date Type Department Care Team (Latest Contact Info) Description 01/02/2003 Outpatient Historical [facility] Maternal and Medicine-[facility] d [address] [place] [address] Alec Blum MD NO ADDRESS ON FILE CERV INCOMPET-ANTEPARTUM (Primary Dx); SUPRF OTHER HIGH RISK Social History Tobacco Use Types Packs/Day Years Used Date Smoking Tobacco: Never Assessed Comments Unknown Sex and Gender Information Value Date Recorded Sex Assigned at Not on file 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
--- OUTSIDE RECORDS SUMMARY | 2025-01-29 09:02 | XMS_ITS | Encounter Summary ---
Author Organization [facility] Address [address] [place] [address] Care Team Providers Care Greenhouse Grower Name Role Phone Gifty Coleman MD Primary Care Provider [phone]- [phone] Encounter Details Date Type Department Care Team (Late st Contact Info) Description 11/07/2021 Digital Self COVID-1 9 Monitoring STL ABSTRACTION [...] documented as of this encounter Care Teams Greenhouse Grower Relationship Specialty Start Date End Date Gifty Coleman MD [address] [phone] PCP - General Family Practice 05/24/22 documented as of this encounter
--- OUTSIDE RECORDS SUMMARY | 2025-01-29 09:02 | XMS_ITS | Encounter Summary ---
Author Organization [facility] Address [address] [place] [address] Care Team Providers Care Medication Technician Name Role Phone SOMMER Fuentes Sr., Vijay Fregoso Primary Care Pro vider Encounter Details Date Type Department Care Team (Latest Contact Info) Description 04/12/2002 Outpatient Historical [facility] [place] [address] [phone] Demetrice Decker MD [address] [place] [phone] Abn Pap Smear-Cervix (Primary Dx); SUPERVIS OTHER NORMAL PREG Social History Tobacco Use Types Packs/Day Years Used Date Smoking Tobacco: Never Assessed Comments Unknown Sex and Gender Information Value Date Recorded Sex Assigned at Not on file 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
--- OUTSIDE RECORDS SUMMARY | 2025-01-29 09:02 | XMS_ITS | Encounter Summary ---
Author Organization [facility] Address [address] [place] [address] Care Team Providers Care Illustrator Set Name Role Phone SOMMER Fuentes Sr., Michael Dave Primary Care Pro vider Encounter Details Date Type Department Care Team (Latest Contact Info) Description 11/01/2005 Outpatient Historical [facility] [address] [place] [phone] Gail Pastrana FNP [address] [place] [address] Acute Sinusitis, Unspecified (Primary Dx) Social History Tobacco Use Types Packs/Day Years Used Date Smoking Tobacco: Never Assessed Comments Unknown Sex and Gender Information Value Date Recorded Sex Assigned at Not on file 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
--- OUTSIDE RECORDS SUMMARY | 2025-01-29 09:02 | XMS_ITS | Encounter Summary ---
Author Organization [facility] Address [address] [place] [address] Care Team Providers Care Director Consumer Affairs Name Role Phone SOMMER Fuentes Sr., Michael Dave Primary Care Pro vider Encounter Details Date Type Department Care Team (Latest Contact Info) Description 04/28/2005 Outpatient Historical [address] [place] [address] John Jaime Jr., MD NO ADDRESS ON FILE SUPERVIS OTHER NORMAL PREG (Primary Dx) Social History Tobacco Use Types Packs/Day Years Used Date Smoking Tobacco: Never Assessed Comments Unknown Sex and Gender Information Value Date Recorded Sex Assigned at Not on file 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
--- OUTSIDE RECORDS SUMMARY | 2025-01-29 09:02 | XMS_ITS | Encounter Summary ---
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
--- OUTSIDE RECORDS SUMMARY | 2025-01-29 09:02 | XMS_ITS | Encounter Summary ---
Author Organization [facility] Address [address] [place] [address] Care Team Providers Care Keno Manager Name Role Phone SOMMRE Fuentes Sr., Vijay Fregoso Primary Care Pro vider Encounter Details Date Type Department Care Team (Latest Contact Info) Description 01/14/2006 Outpatient Historical [facility] [address] [place] [phone] Gail Pastrana FNP [address] [place] [address] Acute Upper Respiratory Infections of Unspecified Site (Primary Dx); Anxiety State, Unspecified Social History Tobacco Use Types Packs/Day Years Used Date Smoking Tobacco: Never Assessed Comments Unknown Sex and Gender Information Value Date Recorded Sex Assigned at Not on file 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
--- OUTSIDE RECORDS SUMMARY | 2025-01-29 09:02 | XMS_ITS | Encounter Summary ---
Author Organization [facility] Address [address] [place] [address] Care Team Providers Care Professor Of Oceanography Name Role Phone SOMMER Fuentes Sr., Vijay Fregoso Primary Care Pro vider Encounter Details Date Type Department Care Team (Latest Contact Info) Description 02/16/1999 Outpatient Historical [facility] [address] [place] [address] Zenon Fall, DO [address] [place] [address] Acute sinusitis, unspecified (Primary Dx); Dysmenorrhea Social History Tobacco Use Types Packs/Day Years Used Date Smoking Tobacco: Never Assessed Comments Unknown Sex and Gender Information Value Date Recorded Sex Assigned at Not on file 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
--- OUTSIDE RECORDS SUMMARY | 2025-01-29 09:02 | XMS_ITS | Encounter Summary ---
Author Organization [facility] Address [address] [place] [address] Care Team Providers Care Dealership Manager Name Role Phone Gifty Coleman MD Primary Care Provider +1- [phone] Encounter Details Date Type Department Care Team [...] documented as of this encounter Care Teams Dealership Manager Relationship Specialty Start Date End Date Gifty Coleman MD [address] [phone] PCP - General Family Practice 05/24/22 documented as of this encounter
--- OUTSIDE RECORDS SUMMARY | 2025-01-29 09:02 | XMS_ITS | Encounter Summary ---
Author Organization [facility] Address [address] 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
--- OUTSIDE RECORDS SUMMARY | 2025-01-29 09:02 | XMS_ITS | Encounter Summary ---
Author Organization [facility] Address [address] [place] [address] Care Team Providers Care Engineering Consultant Name Role Phone SOMMER Fuentes Sr., Michael Dave Primary Care Pro vider Encounter Details Date Type Department Care Team (Latest Contact Info) Description 06/09/2005 Outpatient Historical [facility] [address] [place] [address] Paulo Landon II, MD [address] [place] [address] ABNORM NEC-ANTEPAR (Primary Dx) Social History Tobacco Use Types Packs/Day Years Used Date Smoking Tobacco: Never Assessed Comments Unknown Sex and Gender Information Value Date Recorded Sex Assigned at Not on file 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
--- OUTSIDE RECORDS SUMMARY | 2025-01-29 09:02 | XMS_ITS | Encounter Summary ---
Author Organization [facility] Address [address] [place] [address] Care Team Providers Care Outfitter Cabin Name Role Phone SOMMER Fuentes Sr., Vijay Fregoso Primary Care Pro vider Encounter Details Date Type Department Care Team (Latest Contact Info) Description 02/27/1999 Outpatient Historical 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
--- OUTSIDE RECORDS SUMMARY | 2025-01-29 09:02 | XMS_ITS | Encounter Summary ---
Author Organization [facility] Address [address] [place] [address] Care Team Providers Care Double Ending Machine Operator Name Role Phone SOMMER Fuentes Sr., Michael Dave Primary Care Pro vider Encounter Details Date Type Department Care Team (Latest Contact Info) Description 08/30/2002 Outpatient Historical [address] [place] [address] John Jaime Jr., MD NO ADDRESS ON FILE SUPERVIS OTHER NORMAL PREG (Primary Dx) Social History Tobacco Use Types Packs/Day Years Used Date Smoking Tobacco: Never Assessed Comments Unknown Sex and Gender Information Value Date Recorded Sex Assigned at Not on file 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
--- OUTSIDE RECORDS SUMMARY | 2025-01-29 09:02 | XMS_ITS | Encounter Summary ---
Author Organization [facility] Address [address] [place] [address] Care Team Providers Care Pie Dough Roller Name Role Phone Gifty Coleman MD Primary Care Provider +[phone]- [phone] Encounter Details Date Type Department Care Team (Late st Contact Info) Description 11/04/2021 Digital Self COVID-1 9 Monitoring [facility] ABSTRACTION [...] documented as of this encounter Care Teams Pie Dough Roller Relationship Specialty Start Date End Date Gifty Coleman MD [address] [phone] PCP - General Family Practice 05/24/22 documented as of this encounter
--- OUTSIDE RECORDS SUMMARY | 2025-01-29 09:02 | XMS_ITS | Encounter Summary ---
Author Organization [facility] Address [address] [place] [address] Care Team Providers Care Investigative Analyst Name Role Phone SOMMER Fuentes Sr., Michael Dave Primary Care Pro vider Encounter Details Date Type Department Care Team (Latest Contact Info) Description 04/22/2002 Outpatient Historical [address] [place] [address] John Jaime Jr., MD NO ADDRESS ON FILE THRT MARY LABOR-ANTEPART (Primary Dx) Social History Tobacco Use Types Packs/Day Years Used Date Smoking Tobacco: Never Assessed Comments Unknown Sex and Gender Information Value Date Recorded Sex Assigned at Not on file 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
--- OUTSIDE RECORDS SUMMARY | 2025-01-29 09:02 | XMS_ITS | Encounter Summary ---
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 Gender Identity Not on file Sexual Orientation Not on file documented as of this encounter Plan of Treatment Not on file documented as of this encounter Procedures Procedure Name Priority Date/Time Associated Diagnosis Comments GLUCOSE URINALYSIS, QUALITATIVE Routine 06/24/2005 3:42 PM 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 URINALYSIS MICROSCOPY ONLY Routine 06/24/2005 3:42 PM 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 documented in this encounter Results * (ABNORMAL) URINALYSIS MICROSCOPY ONLY (06/24/2005 3:42 PM 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) WBC URINE 0-2 0 - 2 INTERFACE SYSTEM RBC UA None Seen 0 - 2 INTERFACE SYSTEM HYALINE CAST None Seen 0 - 2 INTERFA CE SYSTEM BACTERIA UA Few(A) None Seen INTERFAC E SYSTEM 06/24/2005 3:42 PM 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 us John Jaime Jr., MD URINE ORDERABLES Final R esult Performing Organization Address [facility] de Phone Number INTERFACE SYSTEM Refer to clinic/hospital department * (ABNORMAL) GLUCOSE URINALYSIS, QUALITATIVE (06/24/2005 3:42 PM 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) GLUCOSE, URINE 250 mg/dl(A) Negative INTERFACE SYSTEM 06/24/2005 3:42 PM 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 us John Jaime Jr., MD URINE ORDERABLES Final R esult Performing Organization Address [facility] Phone Number INTERFACE SYSTEM Refer to clinic/hospital department documented in this encounter Visit Diagnoses Diagnosis Threatened premature labor, antepartum(644.03)- Primary Threatened premature labor, antepartum documented in this encounter Care Teams Security Expert Relationship Specialty Start Date End Date Alfredo Galvan, SOMMER [address] [place] [address] PCP - General NURSE PRACTITIONER 04/24/18 documented as of this encounter
--- OUTSIDE RECORDS SUMMARY | 2025-01-29 09:02 | XMS_ITS | Encounter Summary ---
Author Organization [facility] Address [address] [place] [address] Care Team Providers Care Billing Associate Name Role Phone SOMMER Fuentes Sr., Michael Dave Primary Care Pro vider Encounter Details Date Type Department Care Team (Latest Contact Info) Description 04/14/2005 Outpatient Historical [facility] [address] [place] [address] Alec Blum MD NO ADDRESS ON FILE SCREEN- MALFORM (Primary Dx); ABNORM NEC-ANTEPAR Social History Tobacco Use Types Packs/Day Years Used Date Smoking Tobacco: Never Assessed Comments Unknown Sex and Gender Information Value Date Recorded Sex Assigned at Not on file 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 Gender Identity Not on file Sexual Orientation Not on file documented as of this encounter Plan of Treatment Not on file documented as of this encounter Visit Diagnoses Diagnosis Encounter for routine screening for malformation using ultrasonics- Primary Other known or suspected abnormality, not elsewhere classified, affecting management of mother, antepartum condition or complication documented in this encounter Care Teams Billing Associate Relationship Specialty Start Date End Date Vijay Fuentes Sr., FNP [address] [place] [address] PCP - General NURSE PRACTITIONER 04/24/18 documented as of this encounter
--- OUTSIDE RECORDS SUMMARY | 2025-01-29 09:02 | XMS_ITS | Encounter Summary ---
Author Organization [facility] Address [address] [place] [address] Care Team Providers Care Clinical Trials Nurse Name Role Phone SOMMER Fuentes Sr., Vijay Fregoso Primary Care Pro vider Encounter Details Date Type Department Care Team (Latest Contact Info) Description 01/29/2002 Outpatient Historical [facility] [address] [address] Andi Sandoval MD [address] [phone] ACUTE PHARYNGITIS (Primary Dx); SUPERVIS OTHER NORMAL PREG Social History Tobacco Use Types Packs/Day Years Used Date Smoking Tobacco: Never Assessed Comments Unknown Sex and Gender Information Value Date Recorded Sex Assigned at Not on file 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
--- OUTSIDE RECORDS SUMMARY | 2025-01-29 09:02 | XMS_ITS | Encounter Summary ---
Author Organization [facility] Address [address] [place] [address] Care Team Providers Care Bobbin Winder Name Role Phone SOMMER Fuentes Sr., Michael Dave Primary Care Pro vider Encounter Details Date Type Department Care Team (Latest Contact Info) Description 05/15/1999 Outpatient Historical [facility] [address] [place] [address] Zenon Fall, DO [address] [place] [address] Injury, other and unspecified, finger (Primary Dx) Social History Tobacco Use Types Packs/Day Years Used Date Smoking Tobacco: Never Assessed Comments Unknown Sex and Gender Information Value Date Recorded Sex Assigned at Not on file 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
--- OUTSIDE RECORDS SUMMARY | 2025-01-29 09:02 | XMS_ITS | Encounter Summary ---
Author Organization [facility] Address [address] [place] [address] Care Team Providers Care Halver Machine Operator Name Role Phone SOMMER Fuentes Sr., Michael Dave Primary Care Pro vider Encounter Details Date Type Department Care Team (Latest Contact Info) Description 04/07/2003 Outpatient Historical [address] [place] [address] Addison Hassan, John Alonso MD NO ADDRESS ON FILE NORMAL DELIVERY (Primary Dx) Social History Tobacco Use Types Packs/Day Years Used Date Smoking Tobacco: Never Assessed Comments Unknown Sex and Gender Information Value Date Recorded Sex Assigned at Not on file 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
--- OUTSIDE RECORDS SUMMARY | 2025-01-29 09:02 | XMS_ITS | Encounter Summary ---
Author Organization [facility] Address [address] [place] [address] Care Team Providers Care Process Improvement Specialist Name Role Phone SOMMER Fuentes Sr., Michael Dave Primary Care Pro vider Encounter Details Date Type Department Care Team (Latest Contact Info) Description 06/28/2003 Outpatient Historical [facility] [address] [place] [phone] Gail Pastrana FNP [address] [facility] [address] ACUTE URI NOS (Primary Dx) Social History Tobacco Use Types Packs/Day Years Used Date Smoking Tobacco: Never Assessed Comments Unknown Sex and Gender Information Value Date Recorded Sex Assigned at Not on file 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
--- OUTSIDE RECORDS SUMMARY | 2025-01-29 09:02 | XMS_ITS | Encounter Summary ---
Author Organization [facility] Address [address] [place] [address] Care Team Providers Care Deliverer Outside Name Role Phone SOMMER Fuentes Sr., Michael Dave Primary Care Pro vider Encounter Details Date Type Department Care Team (Latest Contact Info) Description 04/10/2002 Outpatient Historical 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
--- OUTSIDE RECORDS SUMMARY | 2025-01-29 09:02 | XMS_ITS | Encounter Summary ---
Author Organization [email or web address] Address [address] [place] [address] Care Team Providers Care Director Agency & Strategic Partnerships Name Role Phone Gifty Coleman MD Primary Care Provider [phone]- [phone] Encounter Details Date Type Department Care Team [...] documented as of this encounter Care Teams Director Agency & Strategic Partnerships Relationship Specialty Start Date End Date Gifty Coleman MD [address] [phone] PCP - General Family Practice 05/24/22 documented as of this encounter
--- OUTSIDE RECORDS SUMMARY | 2025-01-29 09:02 | XMS_ITS | Encounter Summary ---
Author Organization [facility] Address [address] [place] [address] Care Team Providers Care Rectifying Operator Name Role Phone SOMMER Fuentes Sr., Michael Dave Primary Care Pro vider Encounter Details Date Type Department Care Team (Latest Contact Info) Description 05/26/2005 Outpatient Historical [address] [place] [address] John Jaime Jr., MD NO ADDRESS ON FILE SUPERVIS OTHER NORMAL PREG (Primary Dx) Social History Tobacco Use Types Packs/Day Years Used Date Smoking Tobacco: Never Assessed Comments Unknown Sex and Gender Information Value Date Recorded Sex Assigned at Not on file 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
--- OUTSIDE RECORDS SUMMARY | 2025-01-29 09:02 | XMS_ITS | Encounter Summary ---
Author Organization [facility] Address [address] [place] [address] Care Team Providers Care Ballistic Expert Name Role Phone SOMMER Fuentes Sr., Michael Dave Primary Care Pro vider Encounter Details Date Type Department Care Team (Latest Contact Info) Description 01/24/2003 Outpatient Historical [address] [place] [address] Addison Hassan, John Alonso MD NO ADDRESS ON FILE CERV INCOMPET-ANTEPARTUM (Primary Dx) Social History Tobacco Use Types Packs/Day Years Used Date Smoking Tobacco: Never Assessed Comments Unknown Sex and Gender Information Value Date Recorded Sex Assigned at Not on file 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
--- OUTSIDE RECORDS SUMMARY | 2025-01-29 09:02 | XMS_ITS | Encounter Summary ---
Author Organization [facility] Address [address] [place] [address] Care Team Providers Care Physician'S Aide Name Role Phone SOMMER Fuentes Sr., Michael Dave Primary Care Pro vider Encounter Details Date Type Department Care Team (Latest Contact Info) Description 07/14/2005 Outpatient Historical [address] [place] [address] Addison Hassan, John Alonso MD NO ADDRESS ON FILE Supervision of Other Normal (Primary Dx) Social History Tobacco Use Types Packs/Day Years Used Date Smoking Tobacco: Never Assessed Comments Unknown Sex and Gender Information Value Date Recorded Sex Assigned at Not on file 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
--- OUTSIDE RECORDS SUMMARY | 2025-01-29 09:02 | XMS_ITS | Encounter Summary ---
Author Organization [facility] Address [address] [place] [address] Care Team Providers Care Potable Water Treatment Operator Name Role Phone SOMMER Fuentes Sr., Michael Dave Primary Care Pro vider Encounter Details Date Type Department Care Team (Latest Contact Info) Description 04/23/2002 Outpatient Historical [facility] [address] [place] [address] John Jaime Jr., MD NO ADDRESS ON FILE EARLY ONSET DELIVERY-DEL (Primary Dx); DELIVER-SINGLE LIVEBORN Social History Tobacco Use Types Packs/Day Years Used Date Smoking Tobacco: Never Assessed Comments Unknown Sex and Gender Information Value Date Recorded Sex Assigned at Not on file 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
--- OUTSIDE RECORDS SUMMARY | 2025-01-29 09:02 | XMS_ITS | Encounter Summary ---
Author Organization [facility] Address [address] [place] [address] Care Team Providers Care Prepared Foods Associate Name Role Phone Gifty Coleman MD Primary Care Provider [phone]- [phone] Encounter Details Date Type Department Care Team [...] documented as of this encounter Care Teams Prepared Foods Associate Relationship Specialty Start Date End Date Gifty Coleman MD [address] [phone] PCP - General Family Practice 05/24/22 documented as of this encounter
--- OUTSIDE RECORDS SUMMARY | 2025-01-29 09:02 | XMS_ITS | Encounter Summary ---
Author Organization [facility] Address [address] [place] [address] Care Team Providers Care Engineer Fishing Vessel Name Role Phone Gifty Coleman MD Primary Care Provider [phone]- [phone] Encounter Details Date Type Department Care Team [...] documented as of this encounter Care Teams Engineer Fishing Vessel Relationship Specialty Start Date End Date Gifty Coleman MD [address] [phone] PCP - General Family Practice 05/24/22 documented as of this encounter
--- OUTSIDE RECORDS SUMMARY | 2025-01-29 09:02 | XMS_ITS | Encounter Summary ---
Author Organization [facility] Address [address] [place] [address] Care Team Providers Care Subway Operator Name Role Phone SOMMER Fuentes Sr., Michael Dave Primary Care Pro vider Encounter Details Date Type Department Care Team (Latest Contact Info) Description 03/06/2004 Outpatient Historical [facility] [address] [place] [phone] Gail Pastrana FNP [address] [place] [phone] Periapical abscess (Primary Dx) Social History Tobacco Use Types Packs/Day Years Used Date Smoking Tobacco: Never Assessed Comments Unknown Sex and Gender Information Value Date Recorded Sex Assigned at Not on file 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
--- OUTSIDE RECORDS SUMMARY | 2025-01-29 09:02 | XMS_ITS | Encounter Summary ---
Author Organization [facility] Address [address] [place] [address] Care Team Providers Care Retail Commission Sales Associate Name Role Phone Gifty Coleman MD Primary Care Provider +1- [phone] Encounter Details Date Type Department Care Team [...] documented as of this encounter Care Teams Retail Commission Sales Associate Relationship Specialty Start Date End Date Gifty Coleman MD [address] [phone] PCP - General Family Practice 05/24/22 documented as of this encounter
--- OUTSIDE RECORDS SUMMARY | 2025-01-29 09:02 | XMS_ITS | Encounter Summary ---
Author Organization [facility] Address [address] 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
--- OUTSIDE RECORDS SUMMARY | 2025-01-29 09:02 | XMS_ITS | Encounter Summary ---
Author Organization [facility] Address [address] [place] [address] Care Team Providers Care Clinical Assoc Name Role Phone SOMMER Fuentes Sr., Vijay Fregoso Primary Care Pro vider Encounter Details Date Type Department Care Team (Latest Contact Info) Description 09/18/2001 Outpatient Historical [facility] [address] [place] [phone] Sidney Askew MD [address] [facility] [address] [place] [phone] ACUTE BRONCHITIS (Primary Dx) Social History Tobacco Use Types Packs/Day Years Used Date Smoking Tobacco: Never Assessed Comments Unknown Sex and Gender Information Value Date Recorded Sex Assigned at Not on file 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
--- OUTSIDE RECORDS SUMMARY | 2025-01-29 09:02 | XMS_ITS | Encounter Summary ---
Author Organization [facility] Address [address] [place] [address] Care Team Providers Care Edge Inker Uppers Name Role Phone SOMMER Fuentes Sr., Michael Dave Primary Care Pro vider Encounter Details Date Type Department Care Team (Latest Contact Info) Description 09/05/2002 Outpatient Historical [address] [place] [address] John Jaime Jr., MD NO ADDRESS ON FILE SUPERVIS OTHER NORMAL PREG (Primary Dx) Social History Tobacco Use Types Packs/Day Years Used Date Smoking Tobacco: Never Assessed Comments Unknown Sex and Gender Information Value Date Recorded Sex Assigned at Not on file 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
--- OUTSIDE RECORDS SUMMARY | 2025-01-29 09:02 | XMS_ITS | Encounter Summary ---
Author Organization [facility] Address [address] [place] [address] Care Team Providers Care Armature Balancer Name Role Phone SOMMER Fuentes Sr., Michael Dave Primary Care Pro vider Encounter Details Date Type Department Care Team (Latest Contact Info) Description 06/16/2005 Outpatient Historical [address] [place] [address] John Jaime Jr., MD NO ADDRESS ON FILE SUPERVIS OTHER NORMAL PREG (Primary Dx) Social History Tobacco Use Types Packs/Day Years Used Date Smoking Tobacco: Never Assessed Comments Unknown Sex and Gender Information Value Date Recorded Sex Assigned at Not on file 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
--- OUTSIDE RECORDS SUMMARY | 2025-01-29 09:02 | XMS_ITS | Encounter Summary ---
Author Organization [facility] Address [address] [place] [address] Care Team Providers Care Bar Hostess Name Role Phone SOMMER Fuentes Sr., Michael Dave Primary Care Pro vider Encounter Details Date Type Department Care Team (Latest Contact Info) Description 06/29/2005 Outpatient Historical [address] [place] [address] John Jaime Jr., MD NO ADDRESS ON FILE SUPERVIS OTHER NORMAL PREG (Primary Dx) Social History Tobacco Use Types Packs/Day Years Used Date Smoking Tobacco: Never Assessed Comments Unknown Sex and Gender Information Value Date Recorded Sex Assigned at Not on file 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
--- OUTSIDE RECORDS SUMMARY | 2025-01-29 09:02 | XMS_ITS | Encounter Summary ---
Author Organization [facility] Address [address] [place] [address] Care Team Providers Care Horse Rancher Name Role Phone SOMMER Fuentes Sr., Michael Dave Primary Care Pro vider Encounter Details Date Type Department Care Team (Latest Contact Info) Description 03/26/2003 Outpatient Historical [address] [place] [address] John Jaime Jr., MD NO ADDRESS ON FILE SUPERVIS OTHER NORMAL PREG (Primary Dx) Social History Tobacco Use Types Packs/Day Years Used Date Smoking Tobacco: Never Assessed Comments Unknown Sex and Gender Information Value Date Recorded Sex Assigned at Not on file 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
--- OUTSIDE RECORDS SUMMARY | 2025-01-29 09:02 | XMS_ITS | Encounter Summary ---
Author Organization [facility] Address [address] [place] [address] Care Team Providers Care Toxicology Supervisor Name Role Phone SOMMER Fuentes Sr., Michael Dave Primary Care Pro vider Encounter Details Date Type Department Care Team (Latest Contact Info) Description 10/02/2002 Outpatient Historical [address] [place] [address] John Jaime Jr., MD NO ADDRESS ON FILE THREATEN ABORT-ANTEPART (Primary Dx); HABITUAL ABORT-ANTEPART Social History Tobacco Use Types Packs/Day Years Used Date Smoking Tobacco: Never Assessed Comments Unknown Sex and Gender Information Value Date Recorded Sex Assigned at Not on file 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
--- OUTSIDE RECORDS SUMMARY | 2025-01-29 09:02 | XMS_ITS | Encounter Summary ---
Author Organization [facility] Address [address] [place] [address] Care Team Providers Care Massage Coordinator Name Role Phone SOMMER Fuentes Sr., Michael Dave Primary Care Pro vider Encounter Details Date Type Department Care Team (Latest Contact Info) Description 02/18/2003 Outpatient Historical [address] [place] [address] John Jaime Jr., MD NO ADDRESS ON FILE SUPERVIS OTHER NORMAL PREG (Primary Dx) Social History Tobacco Use Types Packs/Day Years Used Date Smoking Tobacco: Never Assessed Comments Unknown Sex and Gender Information Value Date Recorded Sex Assigned at Not on file 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
--- OUTSIDE RECORDS SUMMARY | 2025-01-29 09:02 | XMS_ITS | Encounter Summary ---
Author Organization [facility] Address [address] [place] [address] Care Team Providers Care Network Support Analyst Name Role Phone SOMMER Fuentes Sr., Michael Dave Primary Care Pro vider Encounter Details Date Type Department Care Team (Latest Contact Info) Description 08/17/2002 Outpatient Historical [facility] [address] [place] [phone] Luis Miguel Christine DO NO ADDRESS ON FILE Periapical abscess (Primary Dx) Social History Tobacco Use Types Packs/Day Years Used Date Smoking Tobacco: Never Assessed Comments Unknown Sex and Gender Information Value Date Recorded Sex Assigned at Not on file 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
--- OUTSIDE RECORDS SUMMARY | 2025-01-29 09:02 | XMS_ITS | Encounter Summary ---
Author Organization [facility] Address [address] [place] [address] Care Team Providers Care Etl Data Architect Name Role Phone SOMMER Fuentes Sr., Michael Dave Primary Care Pro vider Encounter Details Date Type Department Care Team (Latest Contact Info) Description 12/27/2002 Outpatient Historical [address] [place] [address] John Jaime Jr., MD NO ADDRESS ON FILE SUPERVIS OTHER NORMAL PREG (Primary Dx) Social History Tobacco Use Types Packs/Day Years Used Date Smoking Tobacco: Never Assessed Comments Unknown Sex and Gender Information Value Date Recorded Sex Assigned at Not on file 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
--- OUTSIDE RECORDS SUMMARY | 2025-01-29 09:02 | XMS_ITS | Encounter Summary ---
Author Organization [facility] Address [address] [place] [address] Care Team Providers Care Clinical Operations Specialist Name Role Phone Alfredo Galvan, SOMMER, Vijay Fregoso Primary Care Pro vider Encounter Details Date Type Department Care Team (Late st Contact Info) Description 07/17/2005 Inpatient Historical [facility] John Jaime Jr., MD NO ADDRESS ON FILE Premature Rupture of Membranes in , Delivered (Primary Dx) Social History Tobacco Use Types Packs/Day Years Used Date Smoking Tobacco: Never Assessed Comments Unknown Sex and Gender Information Value Date Recorded Sex Assigned at Not on file 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 Gender Identity Not on file Sexual Orientation Not on file documented as of this encounter Plan of Treatment Not on file documented as of this encounter Procedures Procedure Name Priority Date/Time Associated Diagnosis Comments POC GLUCOSE Routine 07/18/2005 1:56 AM BELT MAKER BLOOD GAS CORD ARTERIAL Routine 07/18/2005 1:47 AM BELT MAKER RPR Routine 07/17/2005 10:07 PM BELT MAKER documented in this encounter Results * (ABNORMAL) POC GLUCOSE (07/18/2005 1:56 AM BELT MAKER) GLUCOSE POC 53(L) 60 - 100 mg/dL INTERFACE SYSTEM 07/18/2005 1:56 AM BELT MAKER us John Jaime Jr., MD POINT OF CARE TESTING Fi nal Result Performing Organization Address [facility] Phone Number INTERFACE SYSTEM Refer to clinic/hospital department * (ABNORMAL) BLOOD GAS CORD ARTERIAL (07/18/2005 1:47 AM BELT MAKER) SPECIMEN DESCRIPTION Arterial INTERFACE SYSTEM Comment:Sample not collected by [facility] PH CORD ARTERIAL 7.31 7.18 - 7.38 Unit INTERFACE SYSTEM PCO2 CORD ARTERIAL 55(H) 32 - 36 mmHg INTERFACE SYSTEM PO2 CORD ARTERIAL 25 mmHg INTERFACE SYSTEM HCO3 CORD ARTERIAL 27.6(H) 17.0 - 27.0 mmol/l INTERFACE SYSTEM BASE EXCESS CORD ARTERIAL 1 -2 - 3 mmol/l INTERFACE SYSTEM O2 SAT EST CORD ARTERIAL 39 % INTERFACE SYSTEM TCO2 CORD 29 mmol/l INTERFACE SYSTEM 07/18/2005 1:47 AM BELT MAKER us John Jaime Jr., MD ABG ORDERABLES Final Re sult Performing Organization Address [facility] Phone Number INTERFACE SYSTEM Refer to clinic/hospital department * RPR (07/17/2005 10:07 PM BELT MAKER) RPR Non-Reactiv e Non-Reacti ve INTERFACE SYSTEM 07/17/2005 10:0 7 PM BELT MAKER us John Jaime Jr., MD CHEMISTRY ORDERABLES Fin al Result Performing Organization Address [facility] Phone Number INTERFACE SYSTEM Refer to clinic/hospital department documented in this encounter Visit Diagnoses Diagnosis Premature rupture of membranes in , delivered- Primary documented in this encounter Care Teams Clinical Operations Specialist Relationship Specialty Start Date End Date Alfredo Galvan, SOMMER [address] [place] [address] PCP - General NURSE PRACTITIONER 04/24/18 documented as of this encounter
--- OUTSIDE RECORDS SUMMARY | 2025-01-29 09:02 | XMS_ITS | Encounter Summary ---
Author Organization [facility] Address [address] [place] [address] Care Team Providers Care Shaping Machine Tender Name Role Phone SOMMER Fuentes Sr., Michael Dave Primary Care Pro vider Encounter Details Date Type Department Care Team (Latest Contact Info) Description 03/06/2003 Outpatient Historical [address] [place] [address] Addison Hassan, John Alonso MD NO ADDRESS ON FILE CERV INCOMPET-ANTEPARTUM (Primary Dx) Social History Tobacco Use Types Packs/Day Years Used Date Smoking Tobacco: Never Assessed Comments Unknown Sex and Gender Information Value Date Recorded Sex Assigned at Not on file 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
--- OUTSIDE RECORDS SUMMARY | 2025-01-29 09:02 | XMS_ITS | Encounter Summary ---
Author Organization [facility] Address [address] [place] [address] Care Team Providers Care Port Warden Name Role Phone SOMMER Fuentes Sr., Vijay Fregoso Primary Care Pro vider Encounter Details Date Type Department Care Team (Latest Contact Info) Description 04/15/1999 Outpatient Historical [facility] [address] [place] [address] Zenon Fall, DO [address] [place] [address] Irregular menstruation (Primary Dx); Urinary tract infection, site not specified Social History Tobacco Use Types Packs/Day Years Used Date Smoking Tobacco: Never Assessed Comments Unknown Sex and Gender Information Value Date Recorded Sex Assigned at Not on file 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
--- OUTSIDE RECORDS SUMMARY | 2025-01-29 09:02 | XMS_ITS | Encounter Summary ---
Author Organization [facility] Address [address] [place] [address] Care Team Providers Care Farm Operator Name Role Phone SOMMER Fuentes Sr., Michael Dave Primary Care Pro vider Encounter Details Date Type Department Care Team (Latest Contact Info) Description 05/27/2003 Outpatient Historical [address] [place] [address] John Jaime Jr., MD NO ADDRESS ON FILE ROUT POSTPART FOLLOW-UP (Primary Dx) Social History Tobacco Use Types Packs/Day Years Used Date Smoking Tobacco: Never Assessed Comments Unknown Sex and Gender Information Value Date Recorded Sex Assigned at Not on file 

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
--- NOTE | 2025-01-29 09:29 | XRR_ITS ---
PROCEDURE INFORMATION: Exam: XR Right Wrist Exam date and time: 01/29/2025 9:36 AM Age: 44 years old Clinical indication: Injury or trauma; Other: Not specified; Blunt trauma (contusions or hematomas); Wrist; Right TECHNIQUE: Imaging protocol: Radiologic exam of the right wrist. Views: 3 or more views. Total images: 1310 COMPARISON: CR XR hand RT min 3V* [id number] 01/29/2025 9:01 AM FINDINGS: Bones/joints: Cortical irregularity at the base of the 4th metacarpal suspicious for fracture. Additional malalignment at the 2nd and 3rd carpometacarpal joints and triscaphoid joint spaces may represent ligamentous injury versus sequela of remote trauma. CT recommended for further evaluation. Soft tissues: Normal. XR/XR wrist RT w scaphoid [id number] IMPRESSION: 1. Cortical irregularity at the base of the 4th metacarpal suspicious for fracture. 2. Additional malalignment at the 2nd and 3rd carpometacarpal joints and triscaphoid joint spaces may represent ligamentous injury versus sequela of remote trauma. CT recommended for further evaluation.
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
[2025-01-29 10:25] VITALS: BP 139/76; PULSE 83; O2SAT 98
== END 2025-01-29 10:28 | disposition home or self-care (01) ==
PROVIDERS: Emergency Provider Family Medicine; PCP Family Medicine
DX: S63.511A Sprain of carpal joint of right wrist, initial encounter (principal); F17.210 Nicotine dependence, cigarettes, uncomplicated; E11.9 Type 2 diabetes mellitus without complications; X58.XXXA Exposure to other specified factors, initial encounter
CPT/HCPCS: 73110; 73130; 99283

== ENCOUNTER 2025-01-29 12:30 | Emergency (ER) | payer BC, MEDICAID, SELFPAY ==
--- OUTSIDE RECORDS SUMMARY | 2025-01-29 12:37 | XMS_ITS | Encounter Summary ---
Author Organization [facility] Address [address] [place] [address] Care Team Providers Care C.O.D. Biller Name Role Phone SOMMER Fuentes Sr., Michael Dave Primary Care Pro vider Encounter Details Date Type Department Care Team (Latest Contact Info) Description 01/05/2005 Outpatient Historical [address] [place] [address] John Jaime Jr., MD NO ADDRESS ON FILE SUPERVIS OTHER NORMAL PREG (Primary Dx) Social History Tobacco Use Types Packs/Day Years Used Date Smoking Tobacco: Never Assessed Comments Unknown Sex and Gender Information Value Date Recorded Sex Assigned at Not on file Legal Sex Female 4:48 AM CAN STACKER Gender Identity Not on file Sexual Orientation Not on file documented as of this encounter Plan of Treatment Not on file documented as of this encounter Visit Diagnoses Diagnosis Supervision of other normal - Primary documented in this encounter Care Teams C.O.D. Biller Relationship Specialty Start Date End Date Vijay Fuentes Sr., FNP [address] [place] [address] PCP - General NURSE PRACTITIONER 04/24/18 documented as of this encounter
--- OUTSIDE RECORDS SUMMARY | 2025-01-29 12:37 | XMS_ITS | Encounter Summary ---
Author Organization [facility] Address [address] [place] [address] Care Team Providers Care Pancake Professional Name Role Phone SOMMER Fuentes Sr., Michael Dave Primary Care Pro vider Encounter Details Date Type Department Care Team (Latest Contact Info) Description 02/02/2005 Outpatient Historical [address] [place] [address] John Jaime Jr., MD NO ADDRESS ON FILE SUPERVIS OTHER NORMAL PREG (Primary Dx) Social History Tobacco Use Types Packs/Day Years Used Date Smoking Tobacco: Never Assessed Comments Unknown Sex and Gender Information Value Date Recorded Sex Assigned at Not on file Legal Sex Female 4:48 AM INSULATION EXTRUDER OPERATOR Gender Identity Not on file Sexual Orientation Not on file documented as of this encounter Plan of Treatment Not on file documented as of this encounter Visit Diagnoses Diagnosis Supervision of other normal - Primary documented in this encounter Care Teams Pancake Professional Relationship Specialty Start Date End Date Vijay Fuentes Sr., FNP [address] [place] [address] PCP - General NURSE PRACTITIONER 04/24/18 documented as of this encounter
--- OUTSIDE RECORDS SUMMARY | 2025-01-29 12:37 | XMS_ITS | Encounter Summary ---
Author Organization [facility] Address [address] [place] [address] Care Team Providers Care Fats And Oils Loader Name Role Phone SOMMER Fuentes Sr., Michael Dave Primary Care Pro vider Encounter Details Date Type Department Care Team (Latest Contact Info) Description 02/17/2005 Outpatient Historical [facility] [address] [place] [address] John Jaime Jr., MD NO ADDRESS ON FILE CERV INCOMPET-ANTEPARTUM (Primary Dx); PREG W POOR OBSTETRIC HX NEC Social History Tobacco Use Types Packs/Day Years Used Date Smoking Tobacco: Never Assessed Comments Unknown Sex and Gender Information Value Date Recorded Sex Assigned at Not on file 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
--- OUTSIDE RECORDS SUMMARY | 2025-01-29 12:38 | XMS_ITS | Encounter Summary ---
Author Organization [facility] Address [address] [place] [address] Care Team Providers Care Senior It Security Analyst Name Role Phone SOMMER Fuentes Sr., Michael Dave Primary Care Pro vider Encounter Details Date Type Department Care Team (Latest Contact Info) Description 03/26/2003 Outpatient Historical [address] [place] [address] John Jaime Jr., MD NO ADDRESS ON FILE SUPERVIS OTHER NORMAL PREG (Primary Dx) Social History Tobacco Use Types Packs/Day Years Used Date Smoking Tobacco: Never Assessed Comments Unknown Sex and Gender Information Value Date Recorded Sex Assigned at Not on file 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
--- OUTSIDE RECORDS SUMMARY | 2025-01-29 12:38 | XMS_ITS | Encounter Summary ---
Author Organization [facility] Address [address] [place] [address] Care Team Providers Care Propellant Charge Loader Name Role Phone SOMMER Fuentes Sr., Michael Dave Primary Care Pro vider Encounter Details Date Type Department Care Team (Latest Contact Info) Description 05/15/1999 Outpatient Historical [facility] [address] [place] [address] Zenon Fall, DO [address] [place] [address] Injury, other and unspecified, finger (Primary Dx) Social History Tobacco Use Types Packs/Day Years Used Date Smoking Tobacco: Never Assessed Comments Unknown Sex and Gender Information Value Date Recorded Sex Assigned at Not on file 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
--- OUTSIDE RECORDS SUMMARY | 2025-01-29 12:38 | XMS_ITS | Encounter Summary ---
Author Organization [facility] Address [address] [place] [address] Care Team Providers Care Can Handler Name Role Phone SOMMER Fuentes Sr., Vijay Fregoso Primary Care Pro vider Encounter Details Date Type Department Care Team (Latest Contact Info) Description 05/13/2004 Outpatient Historical [facility] [address] [place] [address] Gail Pastrana FNP [address] [place] [address] Pain in limb (Primary Dx); MENSTRUAL DISORDER NOS Social History Tobacco Use Types Packs/Day Years Used Date Smoking Tobacco: Never Assessed Comments Unknown Sex and Gender Information Value Date Recorded Sex Assigned at Not on file 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
--- OUTSIDE RECORDS SUMMARY | 2025-01-29 12:38 | XMS_ITS | Encounter Summary ---
Author Organization [facility] Address [address] [place] [address] Care Team Providers Care Stars Analytical Lead Name Role Phone SOMMER Fuentes Sr., Michael Dave Primary Care Pro vider Encounter Details Date Type Department Care Team (Latest Contact Info) Description 11/16/2004 Outpatient Historical [facility] [address] [place] [address] Gail Pastrana FNP [address] [place] [phone] ABN BLOOD CHEMISTRY NEC (Primary Dx) Social History Tobacco Use Types Packs/Day Years Used Date Smoking Tobacco: Never Assessed Comments Unknown Sex and Gender Information Value Date Recorded Sex Assigned at Not on file 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
--- OUTSIDE RECORDS SUMMARY | 2025-01-29 12:38 | XMS_ITS | Encounter Summary ---
Author Organization [facility] Address [address] [place] [address] Care Team Providers Care Product Support Engineer Name Role Phone SOMMER Fuentes Sr., Vijay Fregoso Primary Care Pro vider Encounter Details Date Type Department Care Team (Latest Contact Info) Description 12/03/2002 Outpatient Historical [facility] [address] [place] [address] Sidney Askew MD [address] [address] [place] [address] ACUTE URI NOS (Primary Dx) Social History Tobacco Use Types Packs/Day Years Used Date Smoking Tobacco: Never Assessed Comments Unknown Sex and Gender Information Value Date Recorded Sex Assigned at Not on file Legal Sex Female 4:48 AM AMMONIUM SULFATE OPERATOR Gender Identity Not on file Sexual Orientation Not on file documented as of this encounter Plan of Treatment Not on file documented as of this encounter Visit Diagnoses Diagnosis Acute upper respiratory infections of unspecified site- Primary documented in this encounter Care Teams Product Support Engineer Relationship Specialty Start Date End Date Vijay Fuentes Sr., FNP [address] [place] [address] PCP - General NURSE PRACTITIONER 04/24/18 documented as of this encounter
--- OUTSIDE RECORDS SUMMARY | 2025-01-29 12:38 | XMS_ITS | Encounter Summary ---
Author Organization [facility] Address [address] [place] [address] Care Team Providers Care Crewman Main Battle Tank Name Role Phone SOMMER Fuentes Sr., Michael Dave Primary Care Pro vider Encounter Details Date Type Department Care Team (Latest Contact Info) Description 12/21/2004 Outpatient Historical [address] [place] [address] John Jaime Jr., MD NO ADDRESS ON FILE SUPERVIS OTHER NORMAL PREG (Primary Dx) Social History Tobacco Use Types Packs/Day Years Used Date Smoking Tobacco: Never Assessed Comments Unknown Sex and Gender Information Value Date Recorded Sex Assigned at Not on file 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
--- OUTSIDE RECORDS SUMMARY | 2025-01-29 12:38 | XMS_ITS | Encounter Summary ---
Author Organization [facility] Address [address] [place] [address] Care Team Providers Care English Tutor Name Role Phone SOMMER Fuentes Sr., Michael Dave Primary Care Pro vider Encounter Details Date Type Department Care Team (Latest Contact Info) Description 12/21/2004 Outpatient Historical [address] [place] [address] John Jaime Jr., MD NO ADDRESS ON FILE SUPERVIS OTHER NORMAL PREG (Primary Dx) Social History Tobacco Use Types Packs/Day Years Used Date Smoking Tobacco: Never Assessed Comments Unknown Sex and Gender Information Value Date Recorded Sex Assigned at Not on file Legal Sex Female 4:48 AM AGATE SETTER Gender Identity Not on file Sexual Orientation Not on file documented as of this encounter Plan of Treatment Not on file documented as of this encounter Visit Diagnoses Diagnosis Supervision of other normal - Primary documented in this encounter Care Teams English Tutor Relationship Specialty Start Date End Date Vijay Fuentes Sr., FNP [address] [place] [address] PCP - General NURSE PRACTITIONER 04/24/18 documented as of this encounter
--- OUTSIDE RECORDS SUMMARY | 2025-01-29 12:38 | XMS_ITS | Encounter Summary ---
Author Organization [facility] Address [address] [place] [address] Care Team Providers Care Seismic Observer Name Role Phone SOMMER Fuentes Sr., Michael Dave Primary Care Pro vider Encounter Details Date Type Department Care Team (Latest Contact Info) Description 05/27/2003 Outpatient Historical [address] [place] [address] John Jaime Jr., MD NO ADDRESS ON FILE ROUT POSTPART FOLLOW-UP (Primary Dx) Social History Tobacco Use Types Packs/Day Years Used Date Smoking Tobacco: Never Assessed Comments Unknown Sex and Gender Information Value Date Recorded Sex Assigned at Not on file 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
--- OUTSIDE RECORDS SUMMARY | 2025-01-29 12:38 | XMS_ITS | Encounter Summary ---
Author Organization [facility] Address [address] [place] [address] Care Team Providers Care Forestry Biology Specialist Name Role Phone SOMMER Fuentes Sr., Michael Dave Primary Care Pro vider Encounter Details Date Type Department Care Team (Latest Contact Info) Description 03/06/2003 Outpatient Historical [address] [place] [address] Addison Hassan, John Alonso MD NO ADDRESS ON FILE CERV INCOMPET-ANTEPARTUM (Primary Dx) Social History Tobacco Use Types Packs/Day Years Used Date Smoking Tobacco: Never Assessed Comments Unknown Sex and Gender Information Value Date Recorded Sex Assigned at Not on file 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
--- OUTSIDE RECORDS SUMMARY | 2025-01-29 12:38 | XMS_ITS | Encounter Summary ---
Author Organization [facility] Address [address] [place] [address] Care Team Providers Care Pipe Liner Name Role Phone SOMMER Fuentes Sr., Michael Dave Primary Care Pro vider Encounter Details Date Type Department Care Team (Latest Contact Info) Description 02/18/2003 Outpatient Historical [address] [place] [address] John Jaime Jr., MD NO ADDRESS ON FILE SUPERVIS OTHER NORMAL PREG (Primary Dx) Social History Tobacco Use Types Packs/Day Years Used Date Smoking Tobacco: Never Assessed Comments Unknown Sex and Gender Information Value Date Recorded Sex Assigned at Not on file Legal Sex Female 4:48 AM LIME SUPERVISOR Gender Identity Not on file Sexual Orientation Not on file documented as of this encounter Plan of Treatment Not on file documented as of this encounter Visit Diagnoses Diagnosis Supervision of other normal - Primary documented in this encounter Care Teams Pipe Liner Relationship Specialty Start Date End Date Vijay Fuentes Sr., FNP [address] [place] [address] PCP - General NURSE PRACTITIONER 04/24/18 documented as of this encounter
--- OUTSIDE RECORDS SUMMARY | 2025-01-29 12:38 | XMS_ITS | Encounter Summary ---
Author Organization [facility] Address [address] [place] [address] Care Team Providers Care Meeting Planner Name Role Phone SOMMER Fuentes Sr., Michael Dave Primary Care Pro vider Encounter Details Date Type Department Care Team (Latest Contact Info) Description 04/03/2003 Outpatient Historical [address] [place] [address] John Jaime Jr., MD NO ADDRESS ON FILE SUPERVIS NORMAL 1ST PREG (Primary Dx) Social History Tobacco Use Types Packs/Day Years Used Date Smoking Tobacco: Never Assessed Comments Unknown Sex and Gender Information Value Date Recorded Sex Assigned at Not on file 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
--- OUTSIDE RECORDS SUMMARY | 2025-01-29 12:38 | XMS_ITS | Encounter Summary ---
Author Organization [facility] Address [address] [place] [address] Care Team Providers Care Donor Services Manager Name Role Phone SOMMER Fuentes Sr., Michael Dave Primary Care Pro vider Encounter Details Date Type Department Care Team (Latest Contact Info) Description 12/15/1998 Outpatient Historical [facility] [address] [place] [address] Zenon Fall, DO [address] [place] [address] Acute bronchitis (Primary Dx); Acute sinusitis, unspecified Social History Tobacco Use Types Packs/Day Years Used Date Smoking Tobacco: Never Assessed Comments Unknown Sex and Gender Information Value Date Recorded Sex Assigned at Not on file 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
--- OUTSIDE RECORDS SUMMARY | 2025-01-29 12:38 | XMS_ITS | Encounter Summary ---
Author Organization [facility] Address [address] [place] [address] Care Team Providers Care Polyethylene Bag Machine Operator Name Role Phone SOMMER Fuentes Sr., Michael Dave Primary Care Pro vider Encounter Details Date Type Department Care Team (Latest Contact Info) Description 03/06/2004 Outpatient Historical [facility] [address] [place] [address] Gail Pastrana FNP [address] [place] [address] Periapical abscess (Primary Dx) Social History Tobacco Use Types Packs/Day Years Used Date Smoking Tobacco: Never Assessed Comments Unknown Sex and Gender Information Value Date Recorded Sex Assigned at Not on file Legal Sex Female 4:48 AM PYRIDINE RECOVERY OPERATOR Gender Identity Not on file Sexual Orientation Not on file documented as of this encounter Plan of Treatment Not on file documented as of this encounter Visit Diagnoses Diagnosis Periapical abscess- Primary Periapical abscess without sinus documented in this encounter Care Teams Polyethylene Bag Machine Operator Relationship Specialty Start Date End Date Vijay Fuentes Sr., FNP [address] [place] [address] PCP - General NURSE PRACTITIONER 04/24/18 documented as of this encounter
--- OUTSIDE RECORDS SUMMARY | 2025-01-29 12:38 | XMS_ITS | Encounter Summary ---
Author Organization [facility] Address [address] [place] [address] Care Team Providers Care Underwriting Specialist Name Role Phone SOMMER Fuentes Sr., Vijay Fregoso Primary Care Pro vider Encounter Details Date Type Department Care Team (Latest Contact Info) Description 02/16/1999 Outpatient Historical [facility] [address] [place] [address] Zenon Fall, DO [address] [place] [address] Acute sinusitis, unspecified (Primary Dx); Dysmenorrhea Social History Tobacco Use Types Packs/Day Years Used Date Smoking Tobacco: Never Assessed Comments Unknown Sex and Gender Information Value Date Recorded Sex Assigned at Not on file 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
--- OUTSIDE RECORDS SUMMARY | 2025-01-29 12:38 | XMS_ITS | Encounter Summary ---
Author Organization [facility] Address [address] [place] [address] Care Team Providers Care Branding Machine Tender Name Role Phone SOMMER Fuentes Sr., Michael Dave Primary Care Pro vider Encounter Details Date Type Department Care Team (Latest Contact Info) Description 01/02/2003 Outpatient Historical [facility] [address] [place] [address] Alec Blum MD NO ADDRESS ON FILE CERV INCOMPET-ANTEPARTUM (Primary Dx); SUPRF OTHER HIGH RISK Social History Tobacco Use Types Packs/Day Years Used Date Smoking Tobacco: Never Assessed Comments Unknown Sex and Gender Information Value Date Recorded Sex Assigned at Not on file 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
--- OUTSIDE RECORDS SUMMARY | 2025-01-29 12:38 | XMS_ITS | Encounter Summary ---
Author Organization [facility] Address [address] [place] [address] Care Team Providers Care Refrigeration Plant Cork Insulator Name Role Phone SOMMER Fuentes Sr., Vijay Fregoso Primary Care Pro vider Encounter Details Date Type Department Care Team (Late st Contact Info) Description 12/21/2004 Outpatient Historical [facility] Addison Hassan, John Alonso MD NO ADDRESS ON FILE Social History Tobacco Use Types Packs/Day Years Used Date Smoking Tobacco: Never Assessed Comments Unknown Sex and Gender Information Value Date Recorded Sex Assigned at Not on file 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
--- OUTSIDE RECORDS SUMMARY | 2025-01-29 12:38 | XMS_ITS | Encounter Summary ---
Author Organization [facility] Address [address] [place] [address] Care Team Providers Care International Manager Name Role Phone SOMMER Fuentes Sr., Michael Dave Primary Care Pro vider Encounter Details Date Type Department Care Team (Latest Contact Info) Description 03/02/2005 Outpatient Historical [address] [place] [address] John Jaime Jr., MD NO ADDRESS ON FILE SUPERVIS OTHER NORMAL PREG (Primary Dx) Social History Tobacco Use Types Packs/Day Years Used Date Smoking Tobacco: Never Assessed Comments Unknown Sex and Gender Information Value Date Recorded Sex Assigned at Not on file 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
--- OUTSIDE RECORDS SUMMARY | 2025-01-29 12:38 | XMS_ITS | Encounter Summary ---
Author Organization [facility] Address [address] [place] [address] Care Team Providers Care Home Care Nurse Name Role Phone SOMMER Fuentes Sr., Vijay Fregoso Primary Care Pro vider Encounter Details Date Type Department Care Team (Latest Contact Info) Description 04/15/1999 Outpatient Historical [facility] [address] [place] [address] Zenon Fall, DO [address] [place] [address] Irregular menstruation (Primary Dx); Urinary tract infection, site not specified Social History Tobacco Use Types Packs/Day Years Used Date Smoking Tobacco: Never Assessed Comments Unknown Sex and Gender Information Value Date Recorded Sex Assigned at Not on file Legal Sex Female 4:48 AM WORSTED WINDER Gender Identity Not on file Sexual Orientation Not on file documented as of this encounter Plan of Treatment Not on file documented as of this encounter Visit Diagnoses Diagnosis Irregular menstruation- Primary Irregular menstrual cycle Urinary tract infection, site not specified documented in this encounter Care Teams Home Care Nurse Relationship Specialty Start Date End Date Vijay Fuentes Sr., FNP [address] [place] [address] PCP - General NURSE PRACTITIONER 04/24/18 documented as of this encounter
--- OUTSIDE RECORDS SUMMARY | 2025-01-29 12:38 | XMS_ITS | Encounter Summary ---
Author Organization [facility] Address [address] [place] [address] Care Team Providers Care Senior Scientist Name Role Phone Alfredo Galvan, SOMMER, Vijay [...] on file Legal Sex Female 4:48 AM TOLL GATE KEEPER Gender Identity Not on file Sexual Orientation [...] documented in this encounter Care Teams Senior Scientist Relationship Specialty Start Date End Date Alfredo Galvan, SOMMER [address] [place] [address] PCP - General NURSE PRACTITIONER 04/24/18 documented as of this encounter
--- OUTSIDE RECORDS SUMMARY | 2025-01-29 12:38 | XMS_ITS | Encounter Summary ---
Author Organization [facility] Address [address] [place] [address] Care Team Providers Care Welding Machine Operator Thermit Name Role Phone SOMMER Fuentes Sr., Michael Dave Primary Care Pro vider Encounter Details Date Type Department Care Team (Latest Contact Info) Description 12/27/2002 Outpatient Historical [address] [place] [address] John Jaime Jr., MD NO ADDRESS ON FILE SUPERVIS OTHER NORMAL PREG (Primary Dx) Social History Tobacco Use Types Packs/Day Years Used Date Smoking Tobacco: Never Assessed Comments Unknown Sex and Gender Information Value Date Recorded Sex Assigned at Not on file 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
--- OUTSIDE RECORDS SUMMARY | 2025-01-29 12:38 | XMS_ITS | Encounter Summary ---
Author Organization [facility] Address [address] [place] [address] Care Team Providers Care Harness Inspector Name Role Phone SOMMER Fuentes Sr., Vijay Fregoso Primary Care Pro vider Encounter Details Date Type Department Care Team (Latest Contact Info) Description 02/04/2005 Outpatient Historical [facility] M[facility] and Medicine-[facility] d [address] [place] [address] Alec Blum MD NO ADDRESS ON FILE PREG COMPL NEC-ANTEPART (Primary Dx); SCREENING NEC Social History Tobacco Use Types Packs/Day Years Used Date Smoking Tobacco: Never Assessed Comments Unknown Sex and Gender Information Value Date Recorded Sex Assigned at Not on file 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
--- OUTSIDE RECORDS SUMMARY | 2025-01-29 12:38 | XMS_ITS | Encounter Summary ---
Author Organization [facility] Address [address] [place] [address] Care Team Providers Care Drafter Directional Survey Name Role Phone SOMMER Fuentes Sr., Michael Dave Primary Care Pro vider Encounter Details Date Type Department Care Team (Latest Contact Info) Description 06/28/[address] 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
--- OUTSIDE RECORDS SUMMARY | 2025-01-29 12:38 | XMS_ITS | Encounter Summary ---
Author Organization [facility] Address [address] [place] [address] Care Team Providers Care Dental Patient Coordinator Name Role Phone SOMMER Fuentes Sr., Vijay Fregoso Primary Care Pro vider Encounter Details Date Type Department Care Team (Latest Contact Info) Description 10/12/2004 Outpatient Historical [facility] [address] [place] [address] Gail Pastrana FNP [address] [place] [address] OTHER MALAISE AND FATIGUE (Primary Dx); DIZZINESS AND GIDDINESS Social History Tobacco Use Types Packs/Day Years Used Date Smoking Tobacco: Never Assessed Comments Unknown Sex and Gender Information Value Date Recorded Sex Assigned at Not on file 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
--- OUTSIDE RECORDS SUMMARY | 2025-01-29 12:38 | XMS_ITS | Encounter Summary ---
Author Organization [facility] Address [address] [place] [address] Care Team Providers Care Principal Architect Name Role Phone SOMMER Fuentes Sr., Michael Dave Primary Care Pro vider Encounter Details Date Type Department Care Team (Latest Contact Info) Description 04/07/2003 Outpatient Historical [address] [place] [address] Addison Hassan, John Alonso MD NO ADDRESS ON FILE NORMAL DELIVERY (Primary Dx) Social History Tobacco Use Types Packs/Day Years Used Date Smoking Tobacco: Never Assessed Comments Unknown Sex and Gender Information Value Date Recorded Sex Assigned at Not on file 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
--- OUTSIDE RECORDS SUMMARY | 2025-01-29 12:38 | XMS_ITS | Encounter Summary ---
Author Organization [facility] Address [address] [place] [address] Care Team Providers Care Hop Worker Name Role Phone SOMMER Fuentes Sr., Michael Dave Primary Care Pro vider Encounter Details Date Type Department Care Team (Latest Contact Info) Description 10/17/[address] 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
--- OUTSIDE RECORDS SUMMARY | 2025-01-29 12:38 | XMS_ITS | Encounter Summary ---
Author Organization [facility] Address [address] [place] [address] Care Team Providers Care Hvac Designer Name Role Phone SOMMER Fuentes Sr., Michael Dave Primary Care Pro vider Encounter Details Date Type Department Care Team (Latest Contact Info) Description 01/24/2003 Outpatient Historical [address] [place] [address] Addison Hassan, John Alonso MD NO ADDRESS ON FILE CERV INCOMPET-ANTEPARTUM (Primary Dx) Social History Tobacco Use Types Packs/Day Years Used Date Smoking Tobacco: Never Assessed Comments Unknown Sex and Gender Information Value Date Recorded Sex Assigned at Not on file 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
--- OUTSIDE RECORDS SUMMARY | 2025-01-29 12:38 | XMS_ITS | Encounter Summary ---
Author Organization [facility] Address [address] [place] [address] Care Team Providers Care Inventory Control Associate Name Role Phone SOMMER Fuentes Sr., Michael Dave Primary Care Pro vider Encounter Details Date Type Department Care Team (Latest Contact Info) Description 11/29/2002 Outpatient Historical [address] [place] [address] John Jaime Jr., MD NO ADDRESS ON FILE SUPERVIS OTHER NORMAL PREG (Primary Dx) Social History Tobacco Use Types Packs/Day Years Used Date Smoking Tobacco: Never Assessed Comments Unknown Sex and Gender Information Value Date Recorded Sex Assigned at Not on file 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
--- OUTSIDE RECORDS SUMMARY | 2025-01-29 12:38 | XMS_ITS | Encounter Summary ---
Author Organization [facility] Address [address] 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
--- OUTSIDE RECORDS SUMMARY | 2025-01-29 12:38 | XMS_ITS | Encounter Summary ---
Author Organization [facility] Address [address] [place] [address] Care Team Providers Care Terminal Superintendent Name Role Phone SOMMER Fuentes Sr., Michael Dave Primary Care Pro vider Encounter Details Date Type Department Care Team (Latest Contact Info) Description 05/27/2003 Outpatient Historical [facility] Addison Hassan, John Alonso MD NO ADDRESS ON FILE SCREENING MAL NEOP-CERVIX (Primary Dx) Social History Tobacco Use Types Packs/Day Years Used Date Smoking Tobacco: Never Assessed Comments Unknown Sex and Gender Information Value Date Recorded Sex Assigned at Not on file 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
--- OUTSIDE RECORDS SUMMARY | 2025-01-29 12:38 | XMS_ITS | Encounter Summary ---
Author Organization [facility] Address [address] [place] [address] Care Team Providers Care Salon Customer Experience Specialist Name Role Phone SOMMER Fuentes Sr., Vijay Fregoso Primary Care Pro vider Encounter Details Date Type Department Care Team (Latest Contact Info) Description 05/27/[address] [facility] [address] [place] [address] Gail Pastrana FNP [address] [place] [address] CARPAL TUNNEL SYNDROME (Primary Dx) Social History Tobacco Use Types Packs/Day Years Used Date Smoking Tobacco: Never Assessed Comments Unknown Sex and Gender Information Value Date Recorded Sex Assigned at Not on file Legal Sex Female 4:48 AM PORCELAIN ENAMELING SUPERVISOR Gender Identity Not on file Sexual Orientation Not on file documented as of this encounter Plan of Treatment Not on file documented as of this encounter Visit Diagnoses Diagnosis Carpal tunnel syndrome- Primary documented in this encounter Care Teams Salon Customer Experience Specialist Relationship Specialty Start Date End Date Vijay Fuentes Sr., FNP [address] [place] [address] PCP - General NURSE PRACTITIONER 04/24/18 documented as of this encounter
--- OUTSIDE RECORDS SUMMARY | 2025-01-29 12:38 | XMS_ITS | Encounter Summary ---
Author Organization [facility] Address [address] [place] [address] Care Team Providers Care Seeing Eye Dog Teacher Name Role Phone SOMMER Fuentes Sr., Michael Dave Primary Care Pro vider Encounter Details Date Type Department Care Team (Latest Contact Info) Description 03/20/2003 Outpatient Historical [address] [place] [address] John Jaime Jr., MD NO ADDRESS ON FILE SUPERVIS NORMAL 1ST PREG (Primary Dx) Social History Tobacco Use Types Packs/Day Years Used Date Smoking Tobacco: Never Assessed Comments Unknown Sex and Gender Information Value Date Recorded Sex Assigned at Not on file 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
--- OUTSIDE RECORDS SUMMARY | 2025-01-29 12:38 | XMS_ITS | Encounter Summary ---
Author Organization [facility] Address [address] [place] [address] Care Team Providers Care Heavy Equipment Sales Manager Name Role Phone SOMMER Fuentes Sr., Michael Dave Primary Care Pro vider Encounter Details Date Type Department Care Team (Latest Contact Info) Description 11/01/2002 Outpatient Historical [address] [place] [address] John Jaime Jr., MD NO ADDRESS ON FILE SUPERVIS OTHER NORMAL PREG (Primary Dx); PREG W OTHER POOR OBSTETRIC HISTORY Social History Tobacco Use Types Packs/Day Years Used Date Smoking Tobacco: Never Assessed Comments Unknown Sex and Gender Information Value Date Recorded Sex Assigned at Not on file 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
--- OUTSIDE RECORDS SUMMARY | 2025-01-29 12:38 | XMS_ITS | Encounter Summary ---
Author Organization [facility] Address [address] [place] [address] Care Team Providers Care Drill Sergeant Name Role Phone SOMMER Fuentes Sr., Michael Dave Primary Care Pro vider Encounter Details Date Type Department Care Team (Latest Contact Info) Description 12/05/2002 Outpatient Historical [facility] Maternal and Medicine-[facility] d [address] [place] [address] Alec Blum MD NO ADDRESS ON FILE SCREEN- MALFORM (Primary Dx) Social History Tobacco Use Types Packs/Day Years Used Date Smoking Tobacco: Never Assessed Comments Unknown Sex and Gender Information Value Date Recorded Sex Assigned at Not on file Legal Sex Female 4:48 AM PROGRAM MANAGER Gender Identity Not on file Sexual Orientation Not on file documented as of this encounter Plan of Treatment Not on file documented as of this encounter Visit Diagnoses Diagnosis Encounter for routine screening for malformation using ultrasonics- Primary documented in this encounter Care Teams Drill Sergeant Relationship Specialty Start Date End Date Vijay Fuentes Sr., FNP [address] [place] [address] PCP - General NURSE PRACTITIONER 04/24/18 documented as of this encounter
--- OUTSIDE RECORDS SUMMARY | 2025-01-29 12:38 | XMS_ITS | Encounter Summary ---
Author Organization [facility] Address [address] [place] [address] Care Team Providers Care Printing Equipment Mechanic Apprentice Name Role Phone SOMMER Fuentes Sr., Michael Dave Primary Care Pro vider Encounter Details Date Type Department Care Team (Latest Contact Info) Description 03/30/2005 Outpatient Historical [address] [place] [address] John Jaime Jr., MD NO ADDRESS ON FILE Vaccine for influenza (Primary Dx); SUPERVIS OTHER NORMAL PREG Social History Tobacco Use Types Packs/Day Years Used Date Smoking Tobacco: Never Assessed Comments Unknown Sex and Gender Information Value Date Recorded Sex Assigned at Not on file Legal Sex Female 4:48 AM ORTHOPAEDIC PHYSICIAN ASSISTANT Gender Identity Not on file Sexual Orientation Not on file documented as of this encounter Plan of Treatment Not on file documented as of this encounter Visit Diagnoses Diagnosis Vaccine for influenza- Primary Need for prophylactic vaccination and inoculation against influenza Supervision of other normal documented in this encounter Care Teams Printing Equipment Mechanic Apprentice Relationship Specialty Start Date End Date Vijay Fuentes Sr., FNP [address] [place] [address] PCP - General NURSE PRACTITIONER 04/24/18 documented as of this encounter
--- OUTSIDE RECORDS SUMMARY | 2025-01-29 12:38 | XMS_ITS | Encounter Summary ---
Author Organization [facility] Address [address] 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
--- OUTSIDE RECORDS SUMMARY | 2025-01-29 12:39 | XMS_ITS | Encounter Summary ---
Author Organization [facility] Address [address] [place] [address] Care Team Providers Care Curer Acid Drum Name Role Phone SOMMER Fuentes Sr., Michael Dave Primary Care Pro vider Encounter Details Date Type Department Care Team (Latest Contact Info) Description 08/30/2002 Outpatient Historical [address] [place] [address] John Jaime Jr., MD NO ADDRESS ON FILE SUPERVIS OTHER NORMAL PREG (Primary Dx) Social History Tobacco Use Types Packs/Day Years Used Date Smoking Tobacco: Never Assessed Comments Unknown Sex and Gender Information Value Date Recorded Sex Assigned at Not on file 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
--- OUTSIDE RECORDS SUMMARY | 2025-01-29 12:39 | XMS_ITS | Encounter Summary ---
Author Organization [facility] Address [address] [place] [address] Care Team Providers Care Speeder Tender Name Role Phone SOMMER Fuentes Sr., Michael Dave Primary Care Pro vider Encounter Details Date Type Department Care Team (Latest Contact Info) Description 05/31/2002 Outpatient Historical [facility] Addison Hassan, John Alonso MD NO ADDRESS ON FILE SCREENING MAL NEOP-CERVIX (Primary Dx) Social History Tobacco Use Types Packs/Day Years Used Date Smoking Tobacco: Never Assessed Comments Unknown Sex and Gender Information Value Date Recorded Sex Assigned at Not on file Legal Sex Female 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
--- OUTSIDE RECORDS SUMMARY | 2025-01-29 12:39 | XMS_ITS | Encounter Summary ---
Author Organization [facility] Address [address] [place] [address] Care Team Providers Care Drop Hammer Mechanic Name Role Phone SOMMER Fuentes Sr., Vijay Fregoso Primary Care Pro vider Encounter Details Date Type Department Care Team (Latest Contact Info) Description 04/03/[address] [facility] ([place], [place]) [address] [place] [phone] Zenon Fall, DO [address] [place] [address] Unspecified disorder of urethra and urinary tract (Primary Dx); Herpes simplex without mention of complication Social History Tobacco Use Types Packs/Day Years Used Date Smoking Tobacco: Never Assessed Comments Unknown Sex and Gender Information Value Date Recorded Sex Assigned at Not on file Legal Sex Female 4:48 AM SECURITY REP Gender Identity Not on file Sexual Orientation Not on file documented as of this encounter Plan of Treatment Not on file documented as of this encounter Visit Diagnoses Diagnosis Unspecified disorder of urethra and urinary tract- Primary Herpes simplex without mention of complication documented in this encounter Care Teams Drop Hammer Mechanic Relationship Specialty Start Date End Date Vijay Fuentes Sr., FNP [address] [place] [address] PCP - General NURSE PRACTITIONER 04/24/18 documented as of this encounter
--- OUTSIDE RECORDS SUMMARY | 2025-01-29 12:39 | XMS_ITS | Encounter Summary ---
Author Organization [facility] Address [address] [place] [address] Care Team Providers Care Food Safety Coordinator Name Role Phone SOMMER Fuentes Sr., Michael Dave Primary Care Pro vider Encounter Details Date Type Department Care Team (Latest Contact Info) Description 08/17/2002 Outpatient Historical [facility] [address] [place] [phone] Luis Miguel Christine DO NO ADDRESS ON FILE Periapical abscess (Primary Dx) Social History Tobacco Use Types Packs/Day Years Used Date Smoking Tobacco: Never Assessed Comments Unknown Sex and Gender Information Value Date Recorded Sex Assigned at Not on file Legal Sex Female 4:48 AM PRIVATE DUTY RN Gender Identity Not on file Sexual Orientation Not on file documented as of this encounter Plan of Treatment Not on file documented as of this encounter Visit Diagnoses Diagnosis Periapical abscess- Primary Periapical abscess without sinus documented in this encounter Care Teams Food Safety Coordinator Relationship Specialty Start Date End Date Vijay Fuentes Sr., FNP [address] [place] [address] PCP - General NURSE PRACTITIONER 04/24/18 documented as of this encounter
--- OUTSIDE RECORDS SUMMARY | 2025-01-29 12:39 | XMS_ITS | Encounter Summary ---
Author Organization [facility] Address [address] [place] [address] Care Team Providers Care Inside Polisher Name Role Phone SOMMER Fuentes Sr., Michael Dave Primary Care Pro vider Encounter Details Date Type Department Care Team (Latest Contact Info) Description 04/22/2002 Outpatient Historical [address] [place] [address] John Jaime Jr., MD NO ADDRESS ON FILE THRT MARY LABOR-ANTEPART (Primary Dx) Social History Tobacco Use Types Packs/Day Years Used Date Smoking Tobacco: Never Assessed Comments Unknown Sex and Gender Information Value Date Recorded Sex Assigned at Not on file 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
--- OUTSIDE RECORDS SUMMARY | 2025-01-29 12:39 | XMS_ITS | Encounter Summary ---
Author Organization [facility] Address [address] [place] [address] Care Team Providers Care Computer Assistant Name Role Phone Gifty Coleman MD Primary Care Provider [phone] Encounter Details Date Type Department Care Team [...] documented as of this encounter Care Teams Computer Assistant Relationship Specialty Start Date End Date Gifty Coleman MD [address] [phone] PCP - General Family Practice 05/24/22 documented as of this encounter
--- OUTSIDE RECORDS SUMMARY | 2025-01-29 12:39 | XMS_ITS | Encounter Summary ---
Author Organization [facility] Address [address] [facility] [facility] [address] 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
--- OUTSIDE RECORDS SUMMARY | 2025-01-29 12:39 | XMS_ITS | Encounter Summary ---
Author Organization [facility] Address [address] [place] [address] Care Team Providers Care Websphere Portal Architect Name Role Phone SOMMER Fuentes Sr., Vijay Fregoso Primary Care Pro vider Encounter Details Date Type Department Care Team (Latest Contact Info) Description 02/27/1999 Outpatient Historical [facility] [address] [place] [phone] Zenon Fall, DO [address] [place] [address] Acute sinusitis, unspecified (Primary Dx); Headache(784.0) Social History Tobacco Use Types Packs/Day Years Used Date Smoking Tobacco: Never Assessed Comments Unknown Sex and Gender Information Value Date Recorded Sex Assigned at Not on file 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
--- OUTSIDE RECORDS SUMMARY | 2025-01-29 12:39 | XMS_ITS | Encounter Summary ---
Author Organization [facility] Address [address] [place] [address] Care Team Providers Care Side Panel Hanger Name Role Phone SOMMER Fuentes Sr., Michael Dave Primary Care Pro vider Encounter Details Date Type Department Care Team (Latest Contact Info) Description 04/23/2002 Outpatient Historical [facility] [address] [place] [address] John Jaime Jr., MD NO ADDRESS ON FILE EARLY ONSET DELIVERY-DEL (Primary Dx); DELIVER-SINGLE LIVEBORN Social History Tobacco Use Types Packs/Day Years Used Date Smoking Tobacco: Never Assessed Comments Unknown Sex and Gender Information Value Date Recorded Sex Assigned at Not on file 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
--- OUTSIDE RECORDS SUMMARY | 2025-01-29 12:39 | XMS_ITS | Encounter Summary ---
Author Organization [facility] Address [address] [place] [address] Care Team Providers Care Instrument Lens Inspector Name Role Phone SOMMER Fuentes Sr., Vijay Fregoso Primary Care Pro vider Encounter Details Date Type Department Care Team (Latest Contact Info) Description 09/18/2001 Outpatient Historical [facility] [address] [place] [phone] Sidney Askew MD [address] [facility] [address] [place] [phone] ACUTE BRONCHITIS (Primary Dx) Social History Tobacco Use Types Packs/Day Years Used Date Smoking Tobacco: Never Assessed Comments Unknown Sex and Gender Information Value Date Recorded Sex Assigned at Not on file Legal Sex Female 4:48 AM TOURIST CABIN 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
--- OUTSIDE RECORDS SUMMARY | 2025-01-29 12:40 | XMS_ITS | Encounter Summary ---
Author Organization [facility] Address [address] [place] [address] Care Team Providers Care Semiconductor Wafers Etch Operator Name Role Phone SOMMER Fuentes Sr., Michael Dave Primary Care Pro vider Encounter Details Date Type Department Care Team (Latest Contact Info) Description 01/11/2002 Outpatient Historical [facility] [address] [phone] Andi Sandoval MD [address] [phone] SUPERVIS OTHER NORMAL PREG (Primary Dx) Social History Tobacco Use Types Packs/Day Years Used Date Smoking Tobacco: Never Assessed Comments Unknown Sex and Gender Information Value Date Recorded Sex Assigned at Not on file 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
--- OUTSIDE RECORDS SUMMARY | 2025-01-29 12:40 | XMS_ITS | Encounter Summary ---
Author Organization [facility] Address [address] [place] [address] Care Team Providers Care Fisher Troll Line Name Role Phone SOMMER Fuentes Sr., Michael Dave Primary Care Pro vider Encounter Details Date Type Department Care Team (Latest Contact Info) Description 10/02/2002 Outpatient Historical [address] [place] [address] John Jaime Jr., MD NO ADDRESS ON FILE THREATEN ABORT-ANTEPART (Primary Dx); HABITUAL ABORT-ANTEPART Social History Tobacco Use Types Packs/Day Years Used Date Smoking Tobacco: Never Assessed Comments Unknown Sex and Gender Information Value Date Recorded Sex Assigned at Not on file Legal Sex Female 4:48 AM CORPORATE CONCIERGE Gender Identity Not on file Sexual Orientation Not on file documented as of this encounter Plan of Treatment Not on file documented as of this encounter Visit Diagnoses Diagnosis Threatened , antepartum- Primary Recurrent loss, antepartum condition or complication documented in this encounter Care Teams Fisher Troll Line Relationship Specialty Start Date End Date Vijay Fuentes Sr., FNP [address] [place] [address] PCP - General NURSE PRACTITIONER 04/24/18 documented as of this encounter
--- OUTSIDE RECORDS SUMMARY | 2025-01-29 12:40 | XMS_ITS | Encounter Summary ---
Author Organization [facility] Address [address] [place] [address] Care Team Providers Care Roll Press Operator Name Role Phone SOMMER Fuentes Sr., [...] on file Legal Sex Female 4:48 AM PIPE RACKER Gender Identity Not on file Sexual Orientation Not on file documented as of this encounter Plan of Treatment Not on file documented as of this encounter Visit Diagnoses Diagnosis Premature separation of placenta, with delivery- Primary documented in this encounter Care Teams Roll Press Operator Relationship Specialty Start Date End Date Vijay Fuetnes Sr., FNP [address] [place] [address] PCP - General NURSE PRACTITIONER 04/24/18 documented as of this encounter
--- OUTSIDE RECORDS SUMMARY | 2025-01-29 12:40 | XMS_ITS | Encounter Summary ---
Author Organization [facility] Address [address] [place] [address] Care Team Providers Care Damage Appraiser Name Role Phone SOMMER Fuentes Sr., Michael Dave Primary Care Pro vider Encounter Details Date Type Department Care Team (Latest Contact Info) Description 04/10/2002 Outpatient Historical [facility] [address] [phone] Andi Sandoval MD [address] [address] SUPERVIS OTHER NORMAL PREG (Primary Dx) Social History Tobacco Use Types Packs/Day Years Used Date Smoking Tobacco: Never Assessed Comments Unknown Sex and Gender Information Value Date Recorded Sex Assigned at Not on file Legal Sex Female 4:48 AM SYSTEMS COORDINATOR Gender Identity Not on file Sexual Orientation Not on file documented as of this encounter Plan of Treatment Not on file documented as of this encounter Visit Diagnoses Diagnosis Supervision of other normal - Primary documented in this encounter Care Teams Damage Appraiser Relationship Specialty Start Date End Date Vijay Fuentes Sr., FNP [address] [place] [address] PCP - General NURSE PRACTITIONER 04/24/18 documented as of this encounter
--- OUTSIDE RECORDS SUMMARY | 2025-01-29 12:40 | XMS_ITS | Encounter Summary ---
Author Organization [facility] Address [address] [place] [address] Care Team Providers Care Herpetologist Name Role Phone Gifty Coleman MD Primary Care Provider [phone] Encounter Details Date Type Department Care Team [...] documented as of this encounter Care Teams Herpetologist Relationship Specialty Start Date End Date Gifty Coleman MD [address] [phone] PCP - General Family Practice 05/24/22 documented as of this encounter
--- OUTSIDE RECORDS SUMMARY | 2025-01-29 12:40 | XMS_ITS | Encounter Summary ---
Author Organization [facility] Address [address] [place] [address] Care Team Providers Care Box Stamper Name Role Phone SOMMER Fuentes Sr., Vijay Fregoso Primary Care Pro vider Encounter Details Date Type Department Care Team (Latest Contact Info) Description 01/29/2002 Outpatient Historical [facility] [address] [address] Andi Sandoval MD [address] [phone] ACUTE PHARYNGITIS (Primary Dx); SUPERVIS OTHER NORMAL PREG Social History Tobacco Use Types Packs/Day Years Used Date Smoking Tobacco: Never Assessed Comments Unknown Sex and Gender Information Value Date Recorded Sex Assigned at Not on file Legal Sex Female 4:48 AM RN ANTE PARTUM Gender Identity Not on file Sexual Orientation Not on file documented as of this encounter Plan of Treatment Not on file documented as of this encounter Visit Diagnoses Diagnosis Acute pharyngitis- Primary Supervision of other normal documented in this encounter Care Teams Box Stamper Relationship Specialty Start Date End Date Vijay Fuentes Sr., FNP [address] [place] [address] PCP - General NURSE PRACTITIONER 04/24/18 documented as of this encounter
--- OUTSIDE RECORDS SUMMARY | 2025-01-29 12:40 | XMS_ITS | Encounter Summary ---
Author Organization [facility] Address [address] [place] [address] Care Team Providers Care Motor Vehicle Assembly Supervisor Name Role Phone SOMMER Fuentes Sr., Michael Dave Primary Care Pro vider Encounter Details Date Type Department Care Team (Latest Contact Info) Description 05/31/2002 Outpatient Historical [address] [place] [address] John Jaime Jr., MD NO ADDRESS ON FILE ROUT POSTPART FOLLOW-UP (Primary Dx) Social History Tobacco Use Types Packs/Day Years Used Date Smoking Tobacco: Never Assessed Comments Unknown Sex and Gender Information Value Date Recorded Sex Assigned at Not on file 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
--- OUTSIDE RECORDS SUMMARY | 2025-01-29 12:40 | XMS_ITS | Encounter Summary ---
Author Organization [facility] Address [address] [place] [address] Care Team Providers Care Fire Suppression Captain Name Role Phone SOMMER Fuentes Sr., Vijay Fregoso Primary Care Pro vider Encounter Details Date Type Department Care Team (Latest Contact Info) Description 09/18/2002 Outpatient Historical [facility] Addison Hassan, John Alonso MD NO ADDRESS ON FILE SCREENING NEC (Primary Dx) Social History Tobacco Use Types Packs/Day Years Used Date Smoking Tobacco: Never Assessed Comments Unknown Sex and Gender Information Value Date Recorded Sex Assigned at Not on file 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
--- OUTSIDE RECORDS SUMMARY | 2025-01-29 12:40 | XMS_ITS | Encounter Summary ---
Author Organization [facility] Address [address] [place] [address] Care Team Providers Care Control Clerk Name Role Phone SOMMER Fuentes Sr., Michael Dave Primary Care Pro vider Encounter Details Date Type Department Care Team (Latest Contact Info) Description 03/01/2002 Outpatient Historical [facility] [address] [phone] Andi Sandoval MD [address] [address] SUPERVIS OTHER NORMAL PREG (Primary Dx) Social History Tobacco Use Types Packs/Day Years Used Date Smoking Tobacco: Never Assessed Comments Unknown Sex and Gender Information Value Date Recorded Sex Assigned at Not on file Legal Sex Female 4:48 AM RN BUILDING Gender Identity Not on file Sexual Orientation Not on file documented as of this encounter Plan of Treatment Not on file documented as of this encounter Visit Diagnoses Diagnosis Supervision of other normal - Primary documented in this encounter Care Teams Control Clerk Relationship Specialty Start Date End Date Vijay Fuentes Sr., FNP [address] [place] [address] PCP - General NURSE PRACTITIONER 04/24/18 documented as of this encounter
--- OUTSIDE RECORDS SUMMARY | 2025-01-29 12:40 | XMS_ITS | Encounter Summary ---
Author Organization [facility] Address [address] [place] [address] Care Team Providers Care Dwarf Tree Grower Name Role Phone SOMMER Fuentes Sr., Michael Dave Primary Care Pro vider Encounter Details Date Type Department Care Team (Latest Contact Info) Description 04/22/2002 Outpatient Historical [facility] [address] [place] [address] Paulo Landon II, MD [address] [facility] [address] [place] [address] THRT MARY LABOR-ANTEPART (Primary Dx); ANTEPARTUM HEMORR NOS-ANTEPAR Social History Tobacco Use Types Packs/Day Years Used Date Smoking Tobacco: Never Assessed Comments Unknown Sex and Gender Information Value Date Recorded Sex Assigned at Not on file Legal Sex Female 4:48 AM 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
--- OUTSIDE RECORDS SUMMARY | 2025-01-29 12:40 | XMS_ITS | Encounter Summary ---
Author Organization [facility] Address [address] [place] [address] Care Team Providers Care Vascular Technologist Sonographer Name Role Phone SOMMER Fuentes Sr., Michael Dave Primary Care Pro vider Encounter Details Date Type Department Care Team (Latest Contact Info) Description 09/05/2002 Outpatient Historical [address] [place] [address] John Jaime Jr., MD NO ADDRESS ON FILE SUPERVIS OTHER NORMAL PREG (Primary Dx) Social History Tobacco Use Types Packs/Day Years Used Date Smoking Tobacco: Never Assessed Comments Unknown Sex and Gender Information Value Date Recorded Sex Assigned at Not on file Legal Sex Female 4:48 AM NURSING STAFF DEVELOPMENT COORDINATOR Gender Identity Not on file Sexual Orientation Not on file documented as of this encounter Plan of Treatment Not on file documented as of this encounter Visit Diagnoses Diagnosis Supervision of other normal - Primary documented in this encounter Care Teams Vascular Technologist Sonographer Relationship Specialty Start Date End Date Vijay Fuentes Sr., FNP [address] [place] [address] PCP - General NURSE PRACTITIONER 04/24/18 documented as of this encounter
--- OUTSIDE RECORDS SUMMARY | 2025-01-29 12:40 | XMS_ITS | Encounter Summary ---
Author Organization [facility] Address [address] [facility] [address] [place]: [place] [address] Care Team Providers Care Tanning Wheel Filler Name Role Phone SOMMER Fuentes Sr., Michael Dave Primary Care Pro vider Encounter Details Date Type Department Care Team (Late st Contact Info) Description 01/15/2002 Outpatient Historical Andi Sandoval MD [address] [phone] Social History Tobacco Use Types Packs/Day Years Used Date Smoking Tobacco: Never Assessed Comments Unknown Sex and Gender Information Value Date Recorded Sex Assigned at Not on file Legal Sex Female 4:48 AM GERIATRICS PHYSICIAN Gender Identity Not on file Sexual Orientation Not on file documented as of this encounter Plan of Treatment Not on file documented as of this encounter Visit Diagnoses Not on filedocumented in this encounter Care Teams Tanning Wheel Filler Relationship Specialty Start Date End Date Vijay Fuentes Sr., FNP [address] [place] [address] PCP - General NURSE PRACTITIONER 04/24/18 documented as of this encounter
--- OUTSIDE RECORDS SUMMARY | 2025-01-29 12:40 | XMS_ITS | Encounter Summary ---
Author Organization [facility] Address [address] [place] [address] Care Team Providers Care Green Chain Off Bearer Name Role Phone SOMMER Fuentes Sr., Vijay Fregoso Primary Care Pro vider Encounter Details Date Type Department Care Team (Latest Contact Info) Description 04/12/2002 Outpatient Historical [facility] Medicine [place] [address] [phone] Demetrice Decker MD [address] [place] [phone] Abn Pap Smear-Cervix (Primary Dx); SUPERVIS OTHER NORMAL PREG Social History Tobacco Use Types Packs/Day Years Used Date Smoking Tobacco: Never Assessed Comments Unknown Sex and Gender Information Value Date Recorded Sex Assigned at Not on file 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
--- OUTSIDE RECORDS SUMMARY | 2025-01-29 12:40 | XMS_ITS | Encounter Summary ---
Author Organization [facility] Address [address] [place] [address] Care Team Providers Care Corporate Analyst Name Role Phone Gifty Coleman MD Primary Care Provider [phone] Encounter Details Date Type Department Care Team [...] documented as of this encounter Care Teams Corporate Analyst Relationship Specialty Start Date End Date Gifty Coleman MD [address] [address] PCP - General Family Practice 05/24/22 documented as of this encounter
--- OUTSIDE RECORDS SUMMARY | 2025-01-29 12:40 | XMS_ITS | Encounter Summary ---
Author Organization [facility] Address [address] [place] [address] Care Team Providers Care County Historian Name Role Phone Gifty Coleman MD Primary Care Provider [phone] Encounter Details Date Type Department Care Team [...] documented as of this encounter Care Teams County Historian Relationship Specialty Start Date End Date Gifty Coleman MD [address] [phone] PCP - General Family Practice 05/24/22 documented as of this encounter
--- OUTSIDE RECORDS SUMMARY | 2025-01-29 12:40 | XMS_ITS | Encounter Summary ---
Author Organization [facility] Address [address] [place] [address] Care Team Providers Care Strip Mine Supervisor Name Role Phone Gifty Coleman MD Primary Care Provider [phone] Encounter Details Date Type Department Care Team [...] documented as of this encounter Care Teams Strip Mine Supervisor Relationship Specialty Start Date End Date Gifty Coleman MD [address] [phone] PCP - General Family Practice 05/24/22 documented as of this encounter
--- OUTSIDE RECORDS SUMMARY | 2025-01-29 12:40 | XMS_ITS | Encounter Summary ---
Author Organization [facility] Address [address] [place] [address] Care Team Providers Care Barrel Assembly Inspector Name Role Phone Gifty Coleman MD Primary Care Provider [phone] Encounter Details Date Type Department Care Team [...] documented as of this encounter Care Teams Barrel Assembly Inspector Relationship Specialty Start Date End Date Gifty Coleman MD [address] [phone] PCP - General Family Practice 05/24/22 documented as of this encounter
--- OUTSIDE RECORDS SUMMARY | 2025-01-29 12:40 | XMS_ITS | Encounter Summary ---
Author Organization [facility] Address [address] [place] [address] Care Team Providers Care Professor Of Marketing Name Role Phone SOMMER Fuentes Sr., Michael Dave Primary Care Pro vider Encounter Details Date Type Department Care Team (Latest Contact Info) Description 09/18/2002 Outpatient Historical [address] [place] [address] John Jaime Jr., MD NO ADDRESS ON FILE SCREEN- RETARDATION (Primary Dx); SUPERVIS OTHER NORMAL PREG Social History Tobacco Use Types Packs/Day Years Used Date Smoking Tobacco: Never Assessed Comments Unknown Sex and Gender Information Value Date Recorded Sex Assigned at Not on file Legal Sex Female 4:48 AM PHARMACEUTICAL DETAILER Gender Identity Not on file Sexual Orientation Not on file documented as of this encounter Plan of Treatment Not on file documented as of this encounter Visit Diagnoses Diagnosis screening for growth retardation using ultrasonics- Primary Supervision of other normal documented in this encounter Care Teams Professor Of Marketing Relationship Specialty Start Date End Date Vijay Fuentes Sr., FNP [address] [place] [address] PCP - General NURSE PRACTITIONER 04/24/18 documented as of this encounter
--- OUTSIDE RECORDS SUMMARY | 2025-01-29 12:40 | XMS_ITS | Encounter Summary ---
Author Organization [facility] Address [address] [place] [address] Care Team Providers Care Lounge Car Attendant Name Role Phone SOMMER Fuentes Sr., Michael Dave Primary Care Pro vider Encounter Details Date Type Department Care Team (Latest Contact Info) Description 12/28/2001 Outpatient Historical [facility] [address] [phone] Andi Sandoval MD [address] [address] SUPERVIS OTHER NORMAL PREG (Primary Dx) Social History Tobacco Use Types Packs/Day Years Used Date Smoking Tobacco: Never Assessed Comments Unknown Sex and Gender Information Value Date Recorded Sex Assigned at Not on file Legal Sex Female 4:48 AM 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
--- OUTSIDE RECORDS SUMMARY | 2025-01-29 12:41 | XMS_ITS | Encounter Summary ---
Author Organization [facility] Address [address] [place] [address] Care Team Providers Care Wood Planer Name Role Phone SOMMER Fuentes Sr., Michael Dave Primary Care Pro vider Encounter Details Date Type Department Care Team (Latest Contact Info) Description 06/29/2005 Outpatient Historical [address] [place] [address] John Jaime Jr., MD NO ADDRESS ON FILE SUPERVIS OTHER NORMAL PREG (Primary Dx) Social History Tobacco Use Types Packs/Day Years Used Date Smoking Tobacco: Never Assessed Comments Unknown Sex and Gender Information Value Date Recorded Sex Assigned at Not on file Legal Sex Female 4:48 AM COMMUNITY HEALTH PLANNING DIRECTOR Gender Identity Not on file Sexual Orientation Not on file documented as of this encounter Plan of Treatment Not on file documented as of this encounter Visit Diagnoses Diagnosis Supervision of other normal - Primary documented in this encounter Care Teams Wood Planer Relationship Specialty Start Date End Date Vijay Fuentes Sr., FNP [address] [place] [address] PCP - General NURSE PRACTITIONER 04/24/18 documented as of this encounter
--- OUTSIDE RECORDS SUMMARY | 2025-01-29 12:41 | XMS_ITS | Encounter Summary ---
Author Organization [facility] Address [address] [place] [address] Care Team Providers Care Building Operator Name Role Phone SOMMER Fuentes Sr., [...] on file Legal Sex Female 4:48 AM GROUP ACTIVITIES AIDE Gender Identity Not on file Sexual Orientation Not on file documented as of this encounter Plan of Treatment Not on file documented as of this encounter Visit Diagnoses Diagnosis Threatened premature labor, antepartum(644.03)- Primary Threatened premature labor, antepartum documented in this encounter Care Teams Building Operator Relationship Specialty Start Date End Date Vijay Fuentes Sr., FNP [address] [place] [address] PCP - General NURSE PRACTITIONER 04/24/18 documented as of this encounter
--- OUTSIDE RECORDS SUMMARY | 2025-01-29 12:41 | XMS_ITS | Encounter Summary ---
Author Organization [facility] Address [address] [place] [address] Care Team Providers Care Database Marketing Analyst Name Role Phone Gifty Coleman MD Primary Care Provider [phone] Encounter Details Date Type Department Care Team [...] documented as of this encounter Care Teams Database Marketing Analyst Relationship Specialty Start Date End Date Gifty Coleman MD [address] [phone] PCP - General Family Practice 05/24/22 documented as of this encounter
--- OUTSIDE RECORDS SUMMARY | 2025-01-29 12:41 | XMS_ITS | Encounter Summary ---
Author Organization [facility] Address [address] [place] [address] Care Team Providers Care Arcade Attendant Name Role Phone Gifty Coleman MD Primary Care Provider [phone] Encounter Details Date Type Department Care Team [...] documented as of this encounter Care Teams Arcade Attendant Relationship Specialty Start Date End Date Gifty Coleman MD [address] [phone] PCP - General Family Practice 05/24/22 documented as of this encounter
--- OUTSIDE RECORDS SUMMARY | 2025-01-29 12:41 | XMS_ITS | Encounter Summary ---
Author Organization [facility] Address [address] [place] [address] Care Team Providers Care Cost And Risk Analysis Manager Name Role Phone SOMMER Fuentes Sr., Michael Dave Primary Care Pro vider Encounter Details Date Type Department Care Team (Latest Contact Info) Description 05/26/2005 Outpatient Historical [address] [place] [address] John Jaime Jr., MD NO ADDRESS ON FILE SUPERVIS OTHER NORMAL PREG (Primary Dx) Social History Tobacco Use Types Packs/Day Years Used Date Smoking Tobacco: Never Assessed Comments Unknown Sex and Gender Information Value Date Recorded Sex Assigned at Not on file Legal Sex Female 4:48 AM SPEECH LANGUAGE PATHOLOGY ASSISTANT Gender Identity Not on file Sexual Orientation Not on file documented as of this encounter Plan of Treatment Not on file documented as of this encounter Visit Diagnoses Diagnosis Supervision of other normal - Primary documented in this encounter Care Teams Cost And Risk Analysis Manager Relationship Specialty Start Date End Date Vijay Fuentes Sr., FNP [address] [place] [address] PCP - General NURSE PRACTITIONER 04/24/18 documented as of this encounter
--- OUTSIDE RECORDS SUMMARY | 2025-01-29 12:41 | XMS_ITS | Encounter Summary ---
Author Organization [facility] Address [address] [place] [address] Care Team Providers Care Associate Product Integrity Engineer Name Role Phone Alfredo Galvan, SOMMER, Vijay Fregoos Primary Care Pro vider Encounter Details Date [...] on file Legal Sex Female 4:48 AM JANITOR CARETAKER Gender Identity Not on file Sexual Orientation Not on file documented as of this encounter Plan of Treatment Not on file documented as of this encounter Procedures Procedure Name Priority Date/Time Associated Diagnosis Comments GLUCOSE URINALYSIS, QUALITATIVE Routine 06/24/2005 3:42 PM JANITOR CARETAKER URINALYSIS MICROSCOPY ONLY Routine 06/24/2005 3:42 PM JANITOR CARETAKER documented in this encounter Results * (ABNORMAL) URINALYSIS MICROSCOPY ONLY (06/24/2005 3:42 PM JANITOR CARETAKER) WBC URINE 0-2 0 - 2 INTERFACE SYSTEM RBC UA None Seen 0 - 2 INTERFACE SYSTEM HYALINE CAST None Seen 0 - 2 INTERFA CE SYSTEM BACTERIA UA Few(A) None Seen INTERFAC E SYSTEM 06/24/2005 3:42 PM JANITOR CARETAKER us John Jaime Jr., MD URINE ORDERABLES Final R esult Performing Organization Address [facility] de Phone Number INTERFACE SYSTEM Refer to clinic/hospital department * (ABNORMAL) GLUCOSE URINALYSIS, QUALITATIVE (06/24/2005 3:42 PM JANITOR CARETAKER) GLUCOSE, URINE 250 mg/dl(A) Negative INTERFACE SYSTEM 06/24/2005 3:42 PM JANITOR CARETAKER us John Jaime Jr., MD URINE ORDERABLES Final R esult Performing Organization Address [facility] Phone Number INTERFACE SYSTEM Refer to clinic/hospital department documented in this encounter Visit Diagnoses Diagnosis Threatened premature labor, antepartum(644.03)- Primary Threatened premature labor, antepartum documented in this encounter Care Teams Associate Product Integrity Engineer Relationship Specialty Start Date End Date Alfredo Galvan, SOMMER [address] [place] [address] PCP - General NURSE PRACTITIONER 04/24/18 documented as of this encounter
--- OUTSIDE RECORDS SUMMARY | 2025-01-29 12:41 | XMS_ITS | Encounter Summary ---
Author Organization [facility] Address [address] [place] [address] Care Team Providers Care Educational Adviser Name Role Phone SOMMER Fuentes Sr., Michael Dave Primary Care Pro vider Encounter Details Date Type Department Care Team (Latest Contact Info) Description 06/16/2005 Outpatient Historical [address] [place] [address] John Jaime Jr., MD NO ADDRESS ON FILE SUPERVIS OTHER NORMAL PREG (Primary Dx) Social History Tobacco Use Types Packs/Day Years Used Date Smoking Tobacco: Never Assessed Comments Unknown Sex and Gender Information Value Date Recorded Sex Assigned at Not on file Legal Sex Female 4:48 AM REIMBURSEMENT REPRESENTATIVE Gender Identity Not on file Sexual Orientation Not on file documented as of this encounter Plan of Treatment Not on file documented as of this encounter Visit Diagnoses Diagnosis Supervision of other normal - Primary documented in this encounter Care Teams Educational Adviser Relationship Specialty Start Date End Date Vijay Fuentes Sr., FNP [address] [place] [address] PCP - General NURSE PRACTITIONER 04/24/18 documented as of this encounter
--- OUTSIDE RECORDS SUMMARY | 2025-01-29 12:41 | XMS_ITS | Encounter Summary ---
Author Organization [facility] Address [address] [place] [address] Care Team Providers Care Financial Counselor Name Role Phone SOMMER Fuentes Sr., Vijay Fregoso Primary Care Pro vider Encounter Details Date Type Department Care Team (Latest Contact Info) Description 01/14/2006 Outpatient Historical [facility] [address] [place] [phone] Gail Pastrana FNP [address] [place] [address] Acute Upper Respiratory Infections of Unspecified Site (Primary Dx); Anxiety State, Unspecified Social History Tobacco Use Types Packs/Day Years Used Date Smoking Tobacco: Never Assessed Comments Unknown Sex and Gender Information Value Date Recorded Sex Assigned at Not on file Legal Sex Female 4:48 AM DIE CAST ENGINEER Gender Identity Not on file Sexual Orientation Not on file documented as of this encounter Plan of Treatment Not on file documented as of this encounter Visit Diagnoses Diagnosis Acute upper respiratory infections of unspecified site- Primary Anxiety state, unspecified documented in this encounter Care Teams Financial Counselor Relationship Specialty Start Date End Date Vijay Fuentes Sr., FNP [address] [place], [place] [address] PCP - General NURSE PRACTITIONER 04/24/18 documented as of this encounter
--- OUTSIDE RECORDS SUMMARY | 2025-01-29 12:41 | XMS_ITS | Clinical Summary ---
Author Organization [facility] Address [address] [place] [address] Care Team Providers Care Pet Groomer Name Role Phone Alfredo Galvan, SOMMER, Vijay [...] file Legal Sex Female 4:48 AM FOOD CONSULTANT Gender Identity Not on file Sexual Orientation Not on file Last Filed Vital Signs Vital Sign Reading Time Taken Comments Blood Pressure 107/70 04/24/2018 10:53 AM FOOD CONSULTANT Pulse 93 04/24/2018 10:44 AM FOOD CONSULTANT Temperature 37.2 C (98.9 F) 04/24/2018 10:53 AM FOOD CONSULTANT Respiratory Rate 20 04/24/2018 10:53 AM FOOD CONSULTANT Oxygen Saturation 95% 04/24/2018 10:53 AM FOOD CONSULTANT Inhaled Oxygen Concentration - - Weight 101.2 kg (223 lb) 04/24/2018 10:12 AM FOOD CONSULTANT Height 160 cm (5' 3 ) 04/24/2018 10:12 AM FOOD CONSULTANT Body Mass Index 39.5 04/24/2018 10:12 AM FOOD CONSULTANT Plan of Treatment Health Maintenance Due Date Last Done Comments DTAP/TDAP/TD VACCINES (1 - Tdap) 1999 HEPATITIS B VACCINES (1 of 3 - 19+ 3-dose series) 07/1999 HPV/Cotest (21-29) 2001 HPV VACCINES (1 - 3-dose SCDM series) 2007 CERVICAL CANCER SCREENING 2010 HPV/Cotest (30-65) 2010 PAP SMEAR 2010 12/21/2004 BREAST CANCER SCREENING 2020 INFLUENZA VACCINE (#1) 2024 03/30/[address] [place] [address] [place] [address] Care Teams Pet Groomer Relationship Specialty Start Date End Date Vijay Fuentes Sr., FNP [address] [place] [address] PCP - General NURSE PRACTITIONER 04/24/18
--- OUTSIDE RECORDS SUMMARY | 2025-01-29 12:41 | XMS_ITS | Encounter Summary ---
Author Organization [facility] Address [address] [place] [address] Care Team Providers Care Logistics Tech Name Role Phone Gifty Coleman MD Primary Care Provider [phone] Encounter Details Date Type Department Care Team [...] documented as of this encounter Care Teams Logistics Tech Relationship Specialty Start Date End Date Gifty Coleman MD [address] [phone] PCP - General Family Practice 05/24/22 documented as of this encounter
--- OUTSIDE RECORDS SUMMARY | 2025-01-29 12:41 | XMS_ITS | Encounter Summary ---
Author Organization [facility] Address [address] [place] [address] Care Team Providers Care Jet Ski Mechanic Name Role Phone SOMMER Fuentes Sr., Michael Dave Primary Care Pro vider Encounter Details Date Type Department Care Team (Latest Contact Info) Description 04/28/2005 Outpatient Historical [address] [place] [address] John Jaime Jr., MD NO ADDRESS ON FILE SUPERVIS OTHER NORMAL PREG (Primary Dx) Social History Tobacco Use Types Packs/Day Years Used Date Smoking Tobacco: Never Assessed Comments Unknown Sex and Gender Information Value Date Recorded Sex Assigned at Not on file Legal Sex Female 4:48 AM KITCHENWHERE MAKER Gender Identity Not on file Sexual Orientation Not on file documented as of this encounter Plan of Treatment Not on file documented as of this encounter Visit Diagnoses Diagnosis Supervision of other normal - Primary documented in this encounter Care Teams Jet Ski Mechanic Relationship Specialty Start Date End Date Vijay Fuentes Sr., FNP [address] [place] [address] PCP - General NURSE PRACTITIONER 04/24/18 documented as of this encounter
--- OUTSIDE RECORDS SUMMARY | 2025-01-29 12:41 | XMS_ITS | Encounter Summary ---
Author Organization [facility] Address [address] [place] [address] Care Team Providers Care Mobile Electronics Installer Name Role Phone Gifty Coleman MD Primary Care Provider [phone] Encounter Details Date Type Department Care Team [...] documented as of this encounter Care Teams Mobile Electronics Installer Relationship Specialty Start Date End Date Gifty Coleman MD [address] [phone] PCP - General Family Practice 05/24/22 documented as of this encounter
--- OUTSIDE RECORDS SUMMARY | 2025-01-29 12:41 | XMS_ITS | Encounter Summary ---
Author Organization [facility] Address [address] [place] [address] Care Team Providers Care Count Team Member Name Role Phone SOMMER Fuentes Sr., Michael Dave Primary Care Pro vider Encounter Details Date Type Department Care Team (Latest Contact Info) Description 06/09/2005 Outpatient Historical [facility] [address] [place] [address] Paulo Landon II, MD [address] [place] [address] ABNORM NEC-ANTEPAR (Primary Dx) Social History Tobacco Use Types Packs/Day Years Used Date Smoking Tobacco: Never Assessed Comments Unknown Sex and Gender Information Value Date Recorded Sex Assigned at Not on file Legal Sex Female 4:48 AM VOCATIONAL REHABILITATION SUPERVISOR Gender Identity Not on file Sexual Orientation Not on file documented as of this encounter Plan of Treatment Not on file documented as of this encounter Visit Diagnoses Diagnosis Other known or suspected abnormality, not elsewhere classified, affecting management of mother, antepartum condition or complication- Primary documented in this encounter Care Teams Count Team Member Relationship Specialty Start Date End Date Vijay Fuentes Sr., FNP [address] [place], [place] [address] PCP - General NURSE PRACTITIONER 04/24/18 documented as of this encounter
--- OUTSIDE RECORDS SUMMARY | 2025-01-29 12:41 | XMS_ITS | Encounter Summary ---
Author Organization [facility] Address [address] [place] [address] Care Team Providers Care Corn Husk Baler Name Role Phone Alfredo Galvan, SOMMER, Vijay [...] file Legal Sex Female 4:48 AM SENIOR SEARCH MARKETING ANALYST Gender Identity Not on file Sexual Orientation Not on file documented as of this encounter Plan of Treatment Not on file documented as of this encounter Procedures Procedure Name Priority Date/Time Associated Diagnosis Comments POC GLUCOSE Routine 07/18/2005 1:56 AM SENIOR SEARCH MARKETING ANALYST BLOOD GAS CORD ARTERIAL Routine 07/18/2005 1:47 AM SENIOR SEARCH MARKETING ANALYST RPR Routine 07/17/2005 10:07 PM SENIOR SEARCH MARKETING ANALYST documented in this encounter Results * (ABNORMAL) POC GLUCOSE (07/18/2005 1:56 AM SENIOR SEARCH MARKETING ANALYST) GLUCOSE POC 53(L) 60 - 100 mg/dL INTERFACE SYSTEM 07/18/2005 1:56 AM SENIOR SEARCH MARKETING ANALYST us John Jaime Jr., MD POINT OF CARE TESTING Fi nal Result Performing Organization Address [facility] Phone Number INTERFACE SYSTEM Refer to clinic/hospital department * (ABNORMAL) BLOOD GAS CORD ARTERIAL (07/18/2005 1:47 AM SENIOR SEARCH MARKETING ANALYST) SPECIMEN DESCRIPTION Arterial INTERFACE SYSTEM Comment:Sample not [...] 29 mmol/l INTERFACE SYSTEM 07/18/2005 1:47 AM SENIOR SEARCH MARKETING ANALYST us John Jaime Jr., MD ABG ORDERABLES Final Re sult Performing Organization Address [facility] Phone Number INTERFACE SYSTEM Refer to clinic/hospital department * RPR (07/17/2005 10:07 PM SENIOR SEARCH MARKETING ANALYST) RPR Non-Reactiv e Non-Reacti ve INTERFACE SYSTEM 07/17/2005 10:0 7 PM SENIOR SEARCH MARKETING ANALYST us John Jaime Jr., MD CHEMISTRY ORDERABLES Fin al Result Performing Organization Address [facility] Phone Number INTERFACE SYSTEM Refer to clinic/hospital department documented in this encounter Visit Diagnoses Diagnosis Premature rupture of membranes in , delivered- Primary documented in this encounter Care Teams Corn Husk Baler Relationship Specialty Start Date End Date Alfredo Galvan, SOMMER [address] [place] [address] PCP - General NURSE PRACTITIONER 04/24/18 documented as of this encounter
--- OUTSIDE RECORDS SUMMARY | 2025-01-29 12:41 | XMS_ITS | Encounter Summary ---
Author Organization [facility] Address [address] [place] [address] Care Team Providers Care Accounts Collector Name Role Phone SOMMER Fuentes Sr., Michael Dave Primary Care Pro vider Encounter Details Date Type Department Care Team (Latest Contact Info) Description 07/18/2005 Outpatient Historical [address] [place] [address] John Jaime Jr., MD NO ADDRESS ON FILE Normal Delivery (Primary Dx); Outcome of Delivery, Single Liveborn Social History Tobacco Use Types Packs/Day Years Used Date Smoking Tobacco: Never Assessed Comments Unknown Sex and Gender Information Value Date Recorded Sex Assigned at Not on file Legal Sex Female 4:48 AM SCHOOL AGE PROGRAM ASSOCIATE Gender Identity Not on file Sexual Orientation Not on file documented as of this encounter Plan of Treatment Not on file documented as of this encounter Visit Diagnoses Diagnosis Normal delivery- Primary Outcome of delivery, single liveborn documented in this encounter Care Teams Accounts Collector Relationship Specialty Start Date End Date Vijay Fuentes Sr., FNP [address] [place] [address] PCP - General NURSE PRACTITIONER 04/24/18 documented as of this encounter
--- OUTSIDE RECORDS SUMMARY | 2025-01-29 12:41 | XMS_ITS | Encounter Summary ---
Author Organization [facility] Address [address] [place] [address] Care Team Providers Care Loan Teller Name Role Phone Gifty Coleman MD Primary Care Provider [phone] Encounter Details Date Type Department Care Team [...] documented as of this encounter Care Teams Loan Teller Relationship Specialty Start Date End Date Gifty Coleman MD [address] [address] PCP - General Family Practice 05/24/22 documented as of this encounter
--- OUTSIDE RECORDS SUMMARY | 2025-01-29 12:41 | XMS_ITS | Encounter Summary ---
Author Organization [facility] Address [address] [place] [address] Care Team Providers Care Link Wire Fabric Machine Tender Name Role Phone SOMMER Fuentes Sr., Michael Dave Primary Care Pro vider Encounter Details Date Type Department Care Team (Latest Contact Info) Description 07/07/2005 Outpatient Historical [address] [place] [address] Addison Hassan, John Alonso MD NO ADDRESS ON FILE Supervision of Other Normal (Primary Dx) Social History Tobacco Use Types Packs/Day Years Used Date Smoking Tobacco: Never Assessed Comments Unknown Sex and Gender Information Value Date Recorded Sex Assigned at Not on file Legal Sex Female 4:48 AM AUTO WASHER Gender Identity Not on file Sexual Orientation Not on file documented as of this encounter Plan of Treatment Not on file documented as of this encounter Visit Diagnoses Diagnosis Supervision of other normal - Primary documented in this encounter Care Teams Link Wire Fabric Machine Tender Relationship Specialty Start Date End Date Vijay Fuentes Sr., FNP [address] [place] [address] PCP - General NURSE PRACTITIONER 04/24/18 documented as of this encounter
--- OUTSIDE RECORDS SUMMARY | 2025-01-29 12:41 | XMS_ITS | Encounter Summary ---
Author Organization [facility] Address [address] [place] [address] Care Team Providers Care Pipe Stem Sawyer Name Role Phone SOMMER Fuentes Sr., Michael Dave Primary Care Pro vider Encounter Details Date Type Department Care Team (Latest Contact Info) Description 04/14/2005 Outpatient Historical [facility] d [address] [place] [address] Alec Blum MD NO ADDRESS ON FILE SCREEN- MALFORM (Primary Dx); ABNORM NEC-ANTEPAR Social History Tobacco Use Types Packs/Day Years Used Date Smoking Tobacco: Never Assessed Comments Unknown Sex and Gender Information Value Date Recorded Sex Assigned at Not on file Legal Sex Female 4:48 AM STRESS ANALYST Gender Identity Not on file Sexual Orientation Not on file documented as of this encounter Plan of Treatment Not on file documented as of this encounter Visit Diagnoses Diagnosis Encounter for routine screening for malformation using ultrasonics- Primary Other known or suspected abnormality, not elsewhere classified, affecting management of mother, antepartum condition or complication documented in this encounter Care Teams Pipe Stem Sawyer Relationship Specialty Start Date End Date Vijay Fuentes Sr., FNP [address] [place] [address] PCP - General NURSE PRACTITIONER 04/24/18 documented as of this encounter
--- OUTSIDE RECORDS SUMMARY | 2025-01-29 12:41 | XMS_ITS | Encounter Summary ---
Author Organization [facility] Address [address] [place] [address] Care Team Providers Care Assisted Living Associate Name Role Phone SOMMER Fuentes Sr., Michael Dave Primary Care Pro vider Encounter Details Date Type Department Care Team (Latest Contact Info) Description 11/01/2005 Outpatient Historical [facility] [address] [place] [address] Gail Pastrana FNP [address] [place] [phone] Acute Sinusitis, Unspecified (Primary Dx) Social History Tobacco Use Types Packs/Day Years Used Date Smoking Tobacco: Never Assessed Comments Unknown Sex and Gender Information Value Date Recorded Sex Assigned at Not on file Legal Sex Female 4:48 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
--- OUTSIDE RECORDS SUMMARY | 2025-01-29 12:41 | XMS_ITS | Encounter Summary ---
Author Organization [facility] Address [address] [place] [address] Care Team Providers Care Developer Advisor Name Role Phone Gifty Coleman MD Primary Care Provider [phone] Encounter Details Date Type Department Care Team [...] documented as of this encounter Care Teams Developer Advisor Relationship Specialty Start Date End Date Gifty Coleman MD [address] [address] PCP - General Family Practice 05/24/22 documented as of this encounter
--- OUTSIDE RECORDS SUMMARY | 2025-01-29 12:41 | XMS_ITS | Encounter Summary ---
Author Organization [facility] Address [address] [place] [address] Care Team Providers Care Cafeteria Associate Name Role Phone SOMMER Fuentes Sr., Vijay Fregoso Primary Care Pro vider Encounter Details Date Type Department Care Team (Latest Contact Info) Description 01/21/2006 Outpatient Historical [facility] [address] [place] [address] Gail Pastrana FNP [address] [place] [address] Anxiety State, Unspecified (Primary Dx); Acute Upper Respiratory Infections of Unspecified Site Social History Tobacco Use Types Packs/Day Years Used Date Smoking Tobacco: Never Assessed Comments Unknown Sex and Gender Information Value Date Recorded Sex Assigned at Not on file 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
--- OUTSIDE RECORDS SUMMARY | 2025-01-29 12:41 | XMS_ITS | Clinical Summary ---
Author Organization [facility] Address [address] [place] [address] Phone Care Team Providers Care Crawler Crane Operator Name Role Phone Gifty Coleman MD Primary Care Provider Allergies Active Allergy Reactions Criticality Noted Date Comments Insulin Detemir Hives High 06/10/2021 Levemir Paroxetine Hcl Other (See Comments) 06/14/2022 Suicidal ideations Penicillins Rash Low 08/06/2010 Medications Blood-Glucose MeterIndications :Type 2 diabetes mellitus without complication, unspecified whether residential insulin use Insurance driven. Test 4-8 times per day as instructed. 1 Each 1 Active lancetsIndicatio ns:Type 2 diabetes mellitus without complication, unspecified whether rodent exterminator insulin use Insurance driven. Use with appropriate glucose meter to test 4-8 times per day as instructed. 200 Each 4 1 Active blood sugar diagnostic (Blood Glucose Test) StripIndications :Type 2 diabetes mellitus without complication, unspecified whether residential insulin use Insurance driven. Use with appropriate [...] Pain. 60 Tablet 11/02/2021 12:03 PM CDT 2 Active fexofenadine 60 mg tablet Take 60 [...] mouth daily at bedtime. 30 Capsule 3 3 Active buPROPion HCL (WELLBUTRIN SR) 200 [...] courses. Progress: completed, has also applied for manager financial 10/20/2022 Today's SMART Goal: Patient will attend her first therapy session and psychiatry appointment. Progress: attended therapy appointment, has psychiatry appointment on 12/07 Medical Devices Implanted Type Area J2Ee Engineer Device Identifier Shelf Expiration Date Model / Serial / Lot Hemostatic Surg Powder [id number] - [id number] Implanted:Qty : 1 on 10/30/2021 by Reanna Morocho DO at [facility] Hemostatic N/A: Abdomen [employer]- [employer] [id number] 03/01/2023 [id number] / / Procedures Procedure Name Priority Date/Time Associated Diagnosis Comments MICROALBUMIN/CREATIN INE RATIO, RANDOM UR Routine 05/24/2022 3:24 PM SOFTWARE ASSET MANAGEMENT ANALYST Controlled type 2 diabetes mellitus without complication, without long-term current use of insulin (CMS/HCC) LIPID PANEL Routine 05/24/2022 3:24 PM SOFTWARE ASSET MANAGEMENT ANALYST Controlled type 2 diabetes mellitus without complication, without long-term current use of insulin (CMS/HCC) HEMOGLOBIN A1C Routine 05/24/2022 3:24 PM SOFTWARE ASSET MANAGEMENT ANALYST Controlled type 2 diabetes mellitus without complication, without long-term current use of insulin (CMS/HCC) CERV/VAG CYTO AGE BASED SCREEN PAP Routine 05/14/2021 3:52 PM SOFTWARE ASSET MANAGEMENT ANALYST Screening for cervical cancer from Last 3 Months or Most Recently Relevant to Health Maintenance Results * MICROALBUMIN/CREATININE RATIO, RANDOM UR (05/24/2022 3:24 PM SOFTWARE ASSET MANAGEMENT ANALYST) Creatinine, Urine 161 20 - 275 mg/dL [...] within a diagnostic category. Test Performed at: [facility] [address] [place] [address] Best Soni D.O., MPH Urine URINE SPECIMEN OBTAINED BY CLEAN CATCH PROCEDURE / Unknown 05/24/2022 3:24 PM SOFTWARE ASSET MANAGEMENT ANALYST 05/25/2022 3:34 PM SOFTWARE ASSET MANAGEMENT ANALYST Gifty Coleman MD URINE ORDERABLES Final Resu lt Performing Organization Address [facility] Co de Phone Number [facility] [phone] [facility] [address] [place] [address] * (ABNORMAL) HEMOGLOBIN A1C (05/24/2022 3:24 PM SOFTWARE ASSET MANAGEMENT ANALYST) HEMOGLOBIN A1C 6.4(H) <5.7 % of total [...] enexa ESTIMATED AVERAGE GLUCOSE (MMOL/L) 7.6 mmol/L [facility] Comment: Test Performed at: [facility] [address] [place] [address] Best Soni D.O., MPH Blood 05/24/2022 3:24 PM SOFTWARE ASSET MANAGEMENT ANALYST 05/25/2022 6:42 AM SOFTWARE ASSET MANAGEMENT ANALYST us Gifty Coleman MD CHEMISTRY ORDERABLES Final Result Performing Organization Address [facility]/ZIP Co de Phone Number [facility] [phone] [facility] [address] [place] [address] * (ABNORMAL) LIPID PANEL (05/24/2022 3:24 PM SOFTWARE ASSET MANAGEMENT ANALYST) CHOLESTEROL 141 <200 mg/dL [facility] HDL 31(L) > OR = 50 mg/dL [facility] TRIGLYCERIDE 189(H) <150 mg/dL [facility] LDL CALCULATED 82 mg/dL (calc) [facility] Comment: Reference range: <100 Desirable range <100 mg/dL for primary prevention; <70 mg/dL for patients with CHD or diabetic patients with > or = 2 CHD risk factors. LDL-C is now calculated using the Riley-Alvarez calculation, which is a validated novel method providing better accuracy than the Friedewald equation in the estimation of LDL-C. Riley SS et al. DICKSON. 2013;310(19): 4793-0286 (http://education.TOOVIA/faq/UZF689) CHOL/HDL RATIO 4.5 <5.0 (calc) [facility] TOTAL NON-HDL CHOL(LDL+VLDL) 110 <130 mg/dL (calc) [facility] Comment: For patients with diabetes plus 1 major ASCVD risk factor, treating to a non-HDL-C goal of <100 mg/dL (LDL-C of <70 mg/dL) is considered a therapeutic option. Test Performed at: [facility] [address] [facility] [place] [address] Best Soni D.O., MPH Blood 05/24/2022 3:24 PM SOFTWARE ASSET MANAGEMENT ANALYST 05/25/2022 6:42 AM SOFTWARE ASSET MANAGEMENT ANALYST us Gifty Coleman MD CHEMISTRY ORDERABLES Final Result [facility] [phone] [facility] [address] [facility] [place] [address] * CERV/VAG CYTO AGE BASED SCREEN PAP (05/14/2021 3:52 PM SOFTWARE ASSET MANAGEMENT ANALYST) COMMENT (PAP): [facility] Comment: This order for age-based cervical cancer and STI screening follows ACOG guidelines(PB 168, 140, PKE098). See individual assays for performing site location. CLINICAL INFORMATION [facility] Comment:SCREENING LAST MENSTRUAL PERIOD [facility] Comment:INFORMATION NOT PROV IDED PREV PAP: [facility] Comment:INFORMATION NOT PROV IDED PREV BX: [facility] Comment:INFORMATION NOT PROV IDED SOURCE [facility] Comment:[facility] ADEQUACY: [facility] Comment: Satisfactory for evaluation. Endocervical/transformation zone component absent. Age and/or menstrual status not provided PAP INTERP [facility] Comment:Negative for intraep ithelial lesion or malignancy. CYTOLOGY INFECTION [facility] Comment: Shift in vaginal tereso suggestive of bacterial vaginosis. COMMENT (PAP TEST) [facility] Comment: This Pap test has been evaluated with computer assisted technology. INJECTION MOLD TOOLING TECHNICIAN: [facility] Comment: ABC, CT(ASCP) CT screening location: [place] [address] [place] [address] EXPLANATORY NOTE [facility] Comment: EXPLANATORY NOTE: The Pap is a [...] information. HPV E6/E7 Not Detected Not Detected [facility] Comment: Methodology: Roll Hauler-Mediated Amplification This assay detects E6/E7 viral messenger RNA (mRNA) from 14 high-risk HPV types (16,18,31,33,35,39,45,51,52,56,58,59,66,68). The analytical performance characteristics of this assay have been determined by [facility]. The modifications have not been cleared or approved by the FDA. This assay has been validated pursuant to the CLIA regulations and is used for clinical purposes. For additional information, please refer to http://education.[employer]/faq/ACS699i4 (This link if provided for information/ educational purposes only.) Test Performed at: [facility] [address] [place] [address] Best Soni D.O., MPH SL Genital SWAB OF ENDOCERVIX / Unknown 05/14/2021 3:52 PM SOFTWARE ASSET MANAGEMENT ANALYST 05/14/2021 8:39 PM SOFTWARE ASSET MANAGEMENT ANALYST us Anayeli Elliott MD PATHOLOGY/CYTOLOGY ORD ERABLES Final Result [facility] [address] [place] [address] from Last 3 Months or Most Recently Relevant to Health Maintenance Insurance RX INFOCROSSING Medicaid [facility] [employer] PL[facility] MEDICAID Advance Directives For more information, please contact: [phone] * Full Code (Latest Code Status on [...] 7:32 PM 09/27/2021 12:07 PM Care Teams Crawler Crane Operator Relationship Specialty Start Date End Date Gifty Coleman MD [address] [place] [phone] PCP - General Family Practice 05/24/22
--- OUTSIDE RECORDS SUMMARY | 2025-01-29 12:41 | XMS_ITS | Encounter Summary ---
Author Organization [facility] Address [address] [place] [address] Care Team Providers Care Fish Protector Name Role Phone SOMMER Fuentes Sr., Michael Dave Primary Care Pro vider Encounter Details Date Type Department Care Team (Latest Contact Info) Description 07/14/2005 Outpatient Historical [address] [place] [address] Addison Hassan, John Alonso MD NO ADDRESS ON FILE Supervision of Other Normal (Primary Dx) Social History Tobacco Use Types Packs/Day Years Used Date Smoking Tobacco: Never Assessed Comments Unknown Sex and Gender Information Value Date Recorded Sex Assigned at Not on file Legal Sex Female 

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
[2025-01-29 13:15] VITALS: BP 120/76; PULSE 81; RESP 16; TEMP 36.6; O2SAT 99; BMI 36.2
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
== END 2025-01-29 14:32 | disposition home or self-care (01) ==
PROVIDERS: Emergency Provider Family Medicine; PCP Family Medicine
DX: S63.501D Unspecified sprain of right wrist, subsequent encounter (principal); Z79.84 Long term (current) use of oral hypoglycemic drugs; F17.210 Nicotine dependence, cigarettes, uncomplicated; E11.9 Type 2 diabetes mellitus without complications; X58.XXXD Exposure to other specified factors, subsequent encounter
CPT/HCPCS: 73200; 99284